=== PATIENT | female | born 1965 | race African-American/Black ===

== ENCOUNTER 2022-08-07 09:26 | Inpatient (IN) | payer OTHER, SELFPAY ==
[2022-08-07 09:32] VITALS: BP 134/53; PULSE 84; RESP 18; TEMP 37.2; O2SAT 94; BMI 29.0
[2022-08-07 10:03] LABS: Appearance Urine Clear; Color Urine Yellow; Glucose Urine UA Negative (Negative); Leukocyte Esterase Urine Moderate (2+) (Negative); Nitrite Urine Negative (Negative); PH 5.5 (5.0-9.0); Specific Gravity - Urine 1.025 (1.005-1.025); UMIC TRIGGER UACC YES; Urine Blood Negative (Negative); Urine Ketones Negative (Negative); Urine Protein Negative (Neg-Trace)
[2022-08-07 10:04] LABS: UPreg QC Valid YES; Urine Pregnancy NEGATIVE (NEGATIVE)
[2022-08-07 10:08] LABS: Bacteria Urine None Seen (None Seen); Hyaline Casts Urine 0-2 /LPF (0-2); RBC Urine 0-2 /HPF (0-2); UACC Culture Trigger YES
[2022-08-07 10:19] LABS: COVID-19 Test Negative (Negative); IDNOW Serial# 16C4AD1C
[2022-08-07 10:20] LABS: Amphetamine Screen Urine Not Detected (Not Detect); Barbiturates, Urine Not Detected (Not Detect); Benzodiazepines Screen Urine Not Detected (Not Detect); Cannabinoid Screen Urine Not Detected (Not Detect); Cocaine Screen Urine POSITIVE (Not Detect); Fentanyl, urine POSITIVE (Not Detect); Opiate Screen Urine Not Detected (Not Detect); Phencyclidine Screen Urine Not Detected (Not Detect)
--- NOTE | 2022-08-07 10:28 | ED_ITS ---
HPI - Psych General Chief Complaint: Psychiatric Symptoms <LING Chiu Last Filed: 08/07/22 14:42> Stated Complaint: si/ hi auditory hallucinations sect 12 from [facility] <LING Chiu Last Filed: 08/07/22 14:42> Time Seen by Provider: 08/07/22 09:35 <LING Chiu Last Filed: 08/07/22 14:42> Source: patient and EMS <LING Chiu Last Filed: 08/07/22 14:42> Mode of arrival: EMS <LING Chiu Last Filed: 08/07/22 14:42> Limitations: no limitations <LING Chiu Last Filed: 08/07/22 14:42> History of Present Illness HPI Narrative: 56 yo female with history of schizophrenia presents to the ER from [facility] on [address] on a section 12 with concern for acute psychosis and decompensation. She is delusional and is fearful of people lying to her. She wants to harm people who are lying to her. She states she went to the [facility] clinic today because her cat scratched her. She is a poor historian. She is suspicious and will not answer some questions. She reports taking all of her medications as directed. She admits to visual and auditory hallucinations. <LING Chiu Last Filed: 08/07/22 14:42> MD complaint: suicidal ideation, homicidal ideation, anxiety and hallucinations <LING Chiu Last Filed: 08/07/22 14:42> Onset (ago): unknown <LING Chiu Last Filed: 08/07/22 14:42> Duration: constant <LING Chiu Last Filed: 08/07/22 14:42> Associated psychiatric symptoms: depression, suicidal ideation, homicidal ideation, racing thoughts, auditory hallucinations, visual hallucinations and delusions <LING Chiu Last Filed: 08/07/22 14:42> Treatments prior to arrival: placed on mental health hold <LING Chiu Last Filed: 08/07/22 14:42> If self harm: admits thoughts of self harm <LING Chiu Last Filed: 08/07/22 14:42> Related Data Home Medications: Home Medications Medication Instructions Recorded Confirmed albuterol sulfate 90 mcg/actuation 2 puff inhalation Q4H PRN wheezing 08/07/22 08/07/22 aerosol inhaler (Ventolin HFA) budesonide-formoterol HFA 160 2 puff inhalation BID 08/07/22 08/07/22 mcg-4.5 mcg/actuation aerosol inhaler (Symbicort) cholecalciferol (vitamin D3) 50 1 cap PO DAILY 08/07/22 08/07/22 mcg (2,000 unit) capsule diphenhydramine HCl 50 mg capsule 1 cap PO Q12H PRN Agitation 08/07/22 08/07/22 (Banophen) multivitamin with folic acid 400 1 tab PO DAILY 08/07/22 08/07/22 mcg tablet (Daily-Rupinder (with folic acid)) oxcarbazepine 300 mg tablet 1 tab PO BID 08/07/22 08/07/22 prazosin 1 mg capsule 1 cap PO BEDTIME 08/07/22 08/07/22 quetiapine 100 mg tablet 100 mg PO DAILY@1400 08/07/22 08/07/22 quetiapine 100 mg tablet 200 mg PO DAILY@0900 08/07/22 08/07/22 quetiapine 300 mg tablet (Seroquel) 2 tab PO BEDTIME 08/07/22 08/07/22 risperidone 2 mg tablet 1 tab PO BID 08/07/22 08/07/22 <LING Chiu - Last Filed: 08/07/22 14:42> Allergies/Adverse Reactions: Allergies Allergy/AdvReac Type Severity Reaction Status Date / Time Tetracyclines Allergy Unknown Verified 08/07/22 09:43 <LING Chiu - Last Filed: 08/07/22 14:42> [facility] Social History Social History: Social History Alcohol intake: unknown Smoked in Last 30 Days: Yes Use of substances other than those prescribed or required for medical reasons: Unknown Advance Directives: No Patient : No <LING Chiu - Last Filed: 08/07/22 14:42> Physical Exam Vital Signs: Vital Signs: Last Vital Signs Temp 98.9 F 08/07/22 09:32 Pulse 84 08/07/22 09:32 Resp 18 08/07/22 09:32 BP 134/53 L 08/07/22 09:32 Pulse Ox 94 08/07/22 09:32 O2 Del Method 08/07/22 09:32 BMI result Body Mass Index 29.0 <LING Chiu - Last Filed: 08/07/22 14:42> Vital Signs: Last Vital Signs Temp 98.9 F 08/07/22 09:32 Pulse 84 08/07/22 09:32 Resp 18 08/07/22 09:32 BP 134/53 L 08/07/22 09:32 Pulse Ox 94 08/07/22 09:32 O2 Del Method 08/07/22 09:32 BMI result Body Mass Index 29.0 <Kareem Cabrera MD - Last Filed: 08/07/22 16:19> Appearance: Alert. Oriented X3. No acute distress. Eyes: Pupils equal, round and reactive to light. ENT: Pharynx normal. Neck: Normal inspection. Neck supple. CVS: Normal heart rate and rhythm. Pulses normal. Respiratory: No respiratory distress. Breath sounds normal. Abdomen: Soft and nontender. +BS x4 Skin: Skin warm and dry. Normal skin color. Normal skin turgor. No rashes. Extremities: No lower extremity edema. Neuro/psych: Oriented X 3. No motor deficit. No sensory deficit. CN II-XII grossly intact. Does not make eye contact, paranoid, delusional, flight of ideas. poor insight and judgment. <LING Chiu - Last Filed: 08/07/22 14:42> Course Course Course Narrative: 56-year-old female with history of schizophrenia presents to the ER for evaluation and inpatient psychiatric bed search on a [address] from the community. [facility] and sent in for acute decompensation. Poor historian with paranoia. Will get basic labs and medially clear. <LING Chiu - Last Filed: 08/07/22 14:42> Reevaluation(s) Reevaluation #1: Urinalysis with moderate leukocyte esterase, wbc's 11-20 with some squamous epithelial cells present. This could be due to contamination. This could be due to UTI. She is poor historian. Awaiting lab work to see if she has a leukocytosis. Given her mild cat scratch and question of UTI, will start her on Augmentin for treatment and propphylaxis while awaiting urine culture. Patient to be admitted to the psychiatric floor for further management. <LING Vuong - Last Filed: 08/07/22 14:42> Medications Administered Generic Name Dose Route Start Last Admin Trade Name Freq PRN Reason Stop Dose Admin Amoxicillin/Clavulanate Potassium 875 mg 08/07/22 13:00 08/07/22 13:38 Amoxicillin/Potassium Clav 875 Mg Tablet PO Not Given BID ANNY Multivitamins/Vitamin C 1 tab 08/07/22 11:30 08/07/22 12:33 Multivitamin Tablet PO Not Given DAILY ANNY Oxcarbazepine 300 mg 08/07/22 11:30 08/07/22 12:33 Oxcarbazepine 300 Mg Tablet PO Not Given BID ANNY Quetiapine Fumarate 100 mg 08/07/22 11:30 08/07/22 12:33 Quetiapine Fumarate 100 Mg Tablet PO Not Given DAILY ANNY Risperidone 2 mg 08/07/22 11:30 08/07/22 12:33 Risperidone 2 Mg Tablet PO Not Given BID ANNY Vitamin D 50 mcg 08/07/22 11:30 08/07/22 12:33 Cholecalciferol (Vitamin D3) 25 Mcg Tablet PO Not Given DAILY ANNY Discontinued Medications Generic Name Dose Route Start Last Admin Trade Name Freq PRN Reason Stop Dose Admin Amoxicillin/Clavulanate Potassium 875 mg 08/07/22 12:50 08/07/22 13:38 Amoxicillin/Potassium Clav 875 Mg Tablet PO 08/11/22 21:00 Not Given BID ANNY <LING Chiu - Last Filed: 08/07/22 14:42> Medications Administered Generic Name Dose Route Start Last Admin Trade Name Freq PRN Reason Stop Dose Admin Amoxicillin/Clavulanate Potassium 875 mg 08/07/22 13:00 08/07/22 13:38 Amoxicillin/Potassium Clav 875 Mg Tablet PO Not Given BID ANNY Multivitamins/Vitamin C 1 tab 08/07/22 11:30 08/07/22 12:33 Multivitamin Tablet PO Not Given DAILY ANNY Oxcarbazepine 300 mg 08/07/22 11:30 08/07/22 12:33 Oxcarbazepine 300 Mg Tablet PO Not Given BID ANNY Quetiapine Fumarate 100 mg 08/07/22 11:30 08/07/22 12:33 Quetiapine Fumarate 100 Mg Tablet PO Not Given DAILY ANNY Risperidone 2 mg 08/07/22 11:30 08/07/22 12:33 Risperidone 2 Mg Tablet PO Not Given BID ANNY Vitamin D 50 mcg 08/07/22 11:30 08/07/22 12:33 Cholecalciferol (Vitamin D3) 25 Mcg Tablet PO Not Given DAILY ANNY Discontinued Medications Generic Name Dose Route Start Last Admin Trade Name Shanice PRN Reason Stop Dose Admin Amoxicillin/Clavulanate Potassium 875 mg 08/07/22 12:50 08/07/22 13:38 Amoxicillin/Potassium Clav 875 Mg Tablet PO 08/11/22 21:00 Not Given BID ANNY <Kareem Cabrera MD - Last Filed: 08/07/22 16:19> Medical Decision Making Differential Diagnosis Differential Diagnoses: The differential diagnosis associated with the presentation includes <LING Chiu - Last Filed: 08/07/22 14:42> psychosis, decompensated schizophrenia, medication noncompliance, anxiety, delusions, polypharmacy, polysubstance abuse, personality disorder bipolar disorder <LING Chiu - Last Filed: 08/07/22 14:42> Lab Data MDM Lab Attestation statement: I reviewed the patient's lab results. <LING Chiu - Last Filed: 08/07/22 14:42> UA shows possible infection <LING Chiu - Last Filed: 08/07/22 14:42> Result Diagrams: 08/07/22 13:57 08/07/22 13:57 <LING Chiu - Last Filed: 08/07/22 14:42> Labs: Lab Results 08/07/22 08/07/22 08/07/22 Range/Units 09:51 09:51 09:51 WBC RBC Hgb Hct MCV MCH MCHC RDW Plt Count MPV Immature Gran % (Auto) Neut % (Auto) Lymph % (Auto) [place] % (Auto) Eos % (Auto) Baso % (Auto) Lymph # (Auto) [place] # (Auto) Eos # (Auto) Baso # (Auto) Abs Immat Gran (auto) Absolute Neuts (auto) Absolute Nucleated RBC Nucleated RBC % (auto) Sodium Potassium Chloride Carbon Dioxide Anion Gap BUN Creatinine Estim Creat Clear Calc Estimated GFR Random Glucose Calcium Magnesium Total Bilirubin Direct Bilirubin AST ALT Alkaline Phosphatase Total Protein Albumin Urine Color Yellow Urine Appearance Clear Urine pH 5.5 (5.0-9.0) Ur Specific [place] 1.025 (1.005-1.025) Urine Protein Negative (Neg-Trace) mg/dL Urine Glucose (UA) Negative (Negative) mg/dL Urine Ketones Negative (Negative) mg/dL Urine Blood Negative (Negative) Urine Nitrite Negative (Negative) Ur Leukocyte Esterase Moderate (2+) H (Negative) Urine RBC 0-2 (0-2) /HPF Urine WBC 11-20 H (0-5) /HPF Ur Squamous Epith Cells 3-5 (0-2) /HPF Urine Bacteria None Seen (None Seen) Hyaline Casts 0-2 (0-2) /LPF Urine Test NEGATIVE (NEGATIVE) Urine Opiates Screen (Not Detect) Urine Fentanyl Screen (Not Detect) Ur Barbiturates Screen (Not Detect) Ur Phencyclidine Scrn (Not Detect) Ur Amphetamines Screen (Not Detect) U Benzodiazepines Scrn (Not Detect) Urine Cocaine Screen (Not Detect) U Marijuana (THC) Screen (Not Detect) Ethyl Alcohol COVID-19 (DALILA) Negative (Negative) COVID-19 Clin Com See Note 08/07/22 08/07/22 08/07/22 Range/Units 09:51 13:57 13:57 WBC Cancelled RBC Cancelled Hgb Cancelled Hct Cancelled MCV Cancelled MCH Cancelled MCHC Cancelled RDW Cancelled Plt Count Cancelled MPV Cancelled Immature Gran % (Auto) Cancelled Neut % (Auto) Cancelled Lymph % (Auto) Cancelled [place] % (Auto) Cancelled Eos % (Auto) Cancelled Baso % (Auto) Cancelled Lymph # (Auto) Cancelled [place] # (Auto) Cancelled Eos # (Auto) Cancelled Baso # (Auto) Cancelled Abs Immat Gran (auto) Cancelled Absolute Neuts (auto) Cancelled Absolute Nucleated RBC Cancelled Nucleated RBC % (auto) Cancelled Sodium Cancelled Potassium Cancelled Chloride Cancelled Carbon Dioxide Cancelled Anion Gap Cancelled BUN Cancelled Creatinine Cancelled Estim Creat Clear Calc Cancelled Estimated GFR Cancelled Random Glucose Cancelled Calcium Cancelled Magnesium Cancelled Total Bilirubin Cancelled Direct Bilirubin Cancelled AST Cancelled ALT Cancelled Alkaline Phosphatase Cancelled Total Protein Cancelled Albumin Cancelled Urine Color Urine Appearance Urine pH (5.0-9.0) Ur Specific [place] (1.005-1.025) Urine Protein (Neg-Trace) mg/dL Urine Glucose (UA) (Negative) mg/dL Urine Ketones (Negative) mg/dL Urine Blood (Negative) Urine Nitrite (Negative) Ur Leukocyte Esterase (Negative) Urine RBC (0-2) /HPF Urine WBC (0-5) /HPF Ur Squamous Epith Cells (0-2) /HPF Urine Bacteria (None Seen) Hyaline Casts (0-2) /LPF Urine Test (NEGATIVE) Urine Opiates Screen Not Detected (Not Detect) Urine Fentanyl Screen POSITIVE H (Not Detect) Ur Barbiturates Screen Not Detected (Not Detect) Ur Phencyclidine Scrn Not Detected (Not Detect) Ur Amphetamines Screen Not Detected (Not Detect) U Benzodiazepines Scrn Not Detected (Not Detect) Urine Cocaine Screen POSITIVE H (Not Detect) U Marijuana (THC) Screen Not Detected (Not Detect) Ethyl Alcohol Cancelled COVID-19 (DALILA) (Negative) COVID-19 Clin Com 08/07/22 Range/Units 13:57 WBC RBC Hgb Hct MCV MCH MCHC RDW Plt Count MPV Immature Gran % (Auto) Neut % (Auto) Lymph % (Auto) [place] % (Auto) Eos % (Auto) Baso % (Auto) Lymph # (Auto) [place] # (Auto) Eos # (Auto) Baso # (Auto) Abs Immat Gran (auto) Absolute Neuts (auto) Absolute Nucleated RBC Nucleated RBC % (auto) Sodium Potassium Chloride Carbon Dioxide Anion Gap BUN Creatinine Estim Creat Clear Calc Estimated GFR Random Glucose Calcium Magnesium Total Bilirubin Direct Bilirubin AST ALT Alkaline Phosphatase Total Protein Albumin Urine Color Urine Appearance Urine pH (5.0-9.0) Ur Specific [place] (1.005-1.025) Urine Protein (Neg-Trace) mg/dL Urine Glucose (UA) (Negative) mg/dL Urine Ketones (Negative) mg/dL Urine Blood (Negative) Urine Nitrite (Negative) Ur Leukocyte Esterase (Negative) Urine RBC (0-2) /HPF Urine WBC (0-5) /HPF Ur Squamous Epith Cells (0-2) /HPF Urine Bacteria (None Seen) Hyaline Casts (0-2) /LPF Urine Test (NEGATIVE) Urine Opiates Screen (Not Detect) Urine Fentanyl Screen (Not Detect) Ur Barbiturates Screen (Not Detect) Ur Phencyclidine Scrn (Not Detect) Ur Amphetamines Screen (Not Detect) U Benzodiazepines Scrn (Not Detect) Urine Cocaine Screen (Not Detect) U Marijuana (THC) Screen (Not Detect) Ethyl Alcohol < 10 COVID-19 (DALILA) (Negative) COVID-19 Clin Com <LING Chiu - Last Filed: 08/07/22 14:42> Lab Results 08/07/22 08/07/22 08/07/22 Range/Units 09:51 09:51 09:51 WBC RBC Hgb Hct MCV MCH MCHC RDW Plt Count MPV Immature Gran % (Auto) Neut % (Auto) Lymph % (Auto) [place] % (Auto) Eos % (Auto) Baso % (Auto) Lymph # (Auto) [place] # (Auto) Eos # (Auto) Baso # (Auto) Abs Immat Gran (auto) Absolute Neuts (auto) Absolute Nucleated RBC Nucleated RBC % (auto) Sodium Potassium Chloride Carbon Dioxide Anion Gap BUN Creatinine Estim Creat Clear Calc Estimated GFR Random Glucose Calcium Magnesium Total Bilirubin Direct Bilirubin AST ALT Alkaline Phosphatase Total Protein Albumin Urine Color Yellow Urine Appearance Clear Urine pH 5.5 (5.0-9.0) Ur Specific [place] 1.025 (1.005-1.025) Urine Protein Negative (Neg-Trace) mg/dL Urine Glucose (UA) Negative (Negative) mg/dL Urine Ketones Negative (Negative) mg/dL Urine Blood Negative (Negative) Urine Nitrite Negative (Negative) Ur Leukocyte Esterase Moderate (2+) H (Negative) Urine RBC 0-2 (0-2) /HPF Urine WBC 11-20 H (0-5) /HPF Ur Squamous Epith Cells 3-5 (0-2) /HPF Urine Bacteria None Seen (None Seen) Hyaline Casts 0-2 (0-2) /LPF Urine Test NEGATIVE (NEGATIVE) Urine Opiates Screen (Not Detect) Urine Fentanyl Screen (Not Detect) Ur Barbiturates Screen (Not Detect) Ur Phencyclidine Scrn (Not Detect) Ur Amphetamines Screen (Not Detect) U Benzodiazepines Scrn (Not Detect) Urine Cocaine Screen (Not Detect) U Marijuana (THC) Screen (Not Detect) Ethyl Alcohol COVID-19 (DALILA) Negative (Negative) COVID-19 Clin Com See Note 08/07/22 08/07/22 08/07/22 Range/Units 09:51 13:57 13:57 WBC Cancelled RBC Cancelled Hgb Cancelled Hct Cancelled MCV Cancelled MCH Cancelled MCHC Cancelled RDW Cancelled Plt Count Cancelled MPV Cancelled Immature Gran % (Auto) Cancelled Neut % (Auto) Cancelled Lymph % (Auto) Cancelled [place] % (Auto) Cancelled Eos % (Auto) Cancelled Baso % (Auto) Cancelled Lymph # (Auto) Cancelled [place] # (Auto) Cancelled Eos # (Auto) Cancelled Baso # (Auto) Cancelled Abs Immat Gran (auto) Cancelled Absolute Neuts (auto) Cancelled Absolute Nucleated RBC Cancelled Nucleated RBC % (auto) Cancelled Sodium Cancelled Potassium Cancelled Chloride Cancelled Carbon Dioxide Cancelled Anion Gap Cancelled BUN Cancelled Creatinine Cancelled Estim Creat Clear Calc Cancelled Estimated GFR Cancelled Random Glucose Cancelled Calcium Cancelled Magnesium Cancelled Total Bilirubin Cancelled Direct Bilirubin Cancelled AST Cancelled ALT Cancelled Alkaline Phosphatase Cancelled Total Protein Cancelled Albumin Cancelled Urine Color Urine Appearance Urine pH (5.0-9.0) Ur Specific [place] (1.005-1.025) Urine Protein (Neg-Trace) mg/dL Urine Glucose (UA) (Negative) mg/dL Urine Ketones (Negative) mg/dL Urine Blood (Negative) Urine Nitrite (Negative) Ur Leukocyte Esterase (Negative) Urine RBC (0-2) /HPF Urine WBC (0-5) /HPF Ur Squamous Epith Cells (0-2) /HPF Urine Bacteria (None Seen) Hyaline Casts (0-2) /LPF Urine Test (NEGATIVE) Urine Opiates Screen Not Detected (Not Detect) Urine Fentanyl Screen POSITIVE H (Not Detect) Ur Barbiturates Screen Not Detected (Not Detect) Ur Phencyclidine Scrn Not Detected (Not Detect) Ur Amphetamines Screen Not Detected (Not Detect) U Benzodiazepines Scrn Not Detected (Not Detect) Urine Cocaine Screen POSITIVE H (Not Detect) U Marijuana (THC) Screen Not Detected (Not Detect) Ethyl Alcohol Cancelled COVID-19 (DALILA) (Negative) COVID-19 Clin Com 08/07/22 Range/Units 13:57 WBC RBC Hgb Hct MCV MCH MCHC RDW Plt Count MPV Immature Gran % (Auto) Neut % (Auto) Lymph % (Auto) [place] % (Auto) Eos % (Auto) Baso % (Auto) Lymph # (Auto) [place] # (Auto) Eos # (Auto) Baso # (Auto) Abs Immat Gran (auto) Absolute Neuts (auto) Absolute Nucleated RBC Nucleated RBC % (auto) Sodium Potassium Chloride Carbon Dioxide Anion Gap BUN Creatinine Estim Creat Clear Calc Estimated GFR Random Glucose Calcium Magnesium Total Bilirubin Direct Bilirubin AST ALT Alkaline Phosphatase Total Protein Albumin Urine Color Urine Appearance Urine pH (5.0-9.0) Ur Specific [place] (1.005-1.025) Urine Protein (Neg-Trace) mg/dL Urine Glucose (UA) (Negative) mg/dL Urine Ketones (Negative) mg/dL Urine Blood (Negative) Urine Nitrite (Negative) Ur Leukocyte Esterase (Negative) Urine RBC (0-2) /HPF Urine WBC (0-5) /HPF Ur Squamous Epith Cells (0-2) /HPF Urine Bacteria (None Seen) Hyaline Casts (0-2) /LPF Urine Test (NEGATIVE) Urine Opiates Screen (Not Detect) Urine Fentanyl Screen (Not Detect) Ur Barbiturates Screen (Not Detect) Ur Phencyclidine Scrn (Not Detect) Ur Amphetamines Screen (Not Detect) U Benzodiazepines Scrn (Not Detect) Urine Cocaine Screen (Not Detect) U Marijuana (THC) Screen (Not Detect) Ethyl Alcohol < 10 COVID-19 (DALILA) (Negative) COVID-19 Clin Com <Kareem Cabrera MD - Last Filed: 08/07/22 16:19> Independent Historian Clinical information obtained from an independent historian. History obtained from or confirmed by: EMS <LING Chiu - Last Filed: 08/07/22 14:42> Prescription Management I considered prescription management with: Antibiotic <LING Chiu - Last Filed: 08/07/22 14:42> Chronic Conditions Patient?s care impacted by: Other ( Mental illness) <LING Chiu - Last Filed: 08/07/22 14:42> Social Determinants Patient?s care significantly limited by Social Determinants of Health including: Inadequate housing, Alcoholism and drug addiction in family and Unemployment <LING Chiu - Last Filed: 08/07/22 14:42> Attestation Attending Attestation: I personally reviewed PA/resident/nurse practitioner note. I reviewed a all results and treatment plan. I agree with the assessment and plan. I agree with disposition <Kareem Cabrera MD - Last Filed: 08/07/22 16:19> Critical Care Time Critical Care Time Critical Care Time: No <LING Chiu - Last Filed: 08/07/22 14:42> Discharge Plan Discharge Clinical Impression: Schizophrenia, Cat scratch, Polysubstance abuse <LING Chiu - Last Filed: 08/07/22 14:42> Patient Disposition: Admitted As Inpatient <LING Chiu - Last Filed: 08/07/22 14:42> Interventions: Admission Worksheet (ED) Last Done: 08/07/22 15:40 <LING Chiu - Last Filed: 08/07/22 14:42> Discharge Date/Time: 08/07/22 16:05 <LING Chiu - Last Filed: 08/07/22 14:42>
--- NOTE | 2022-08-07 11:30 | PC.NURSE ---
Addendum entered by Franhceska Dougherty 08/07/22 11:58: Home medications now verified by pharmacy Original Note: Preliminary med rec completed and verified. Pharmacy aware.
--- NOTE | 2022-08-07 11:40 | PHA.MEDREC ---
Pharmacy Consult ? Medication Reconciliation Pharmacy has completed the medication reconciliation. Reviewed med rec done by nursing (Francheska). Called pharmacy to confirm meds.
--- NOTE | 2022-08-07 12:30 | ECG_ITS ---
Test Reason : MED CLEARANCE Blood Pressure : / mmHG Vent. Rate : 071 BPM Atrial Rate : 071 BPM P-R Int : 144 ms QRS Dur : 086 ms QT Int : 392 ms P-R-T Axes : 079 089 084 degrees QTc Int : 425 ms Normal sinus rhythm Septal infarct , age undetermined Abnormal ECG No previous ECGs available Referred By: Monse Patel Electronically Signed By:TALIB MOSER MD
[2022-08-07 14:56] LABS: Ethanol < 10 mg/dL
--- OUTSIDE RECORDS SUMMARY | 2022-08-07 14:56 | XMS_ITS | Continuity of Care Document ---
:1965 Author Organization [facility] Address [address] [place] [phone]- Care Team Providers Name Role Phone Ella JAMES, Ellen Luong Primary Care Physician Unavailabl e Encounter [facility] Date(s): 02/20/22 - 02/20/[address] [id number] Discharge Disposition: A-D/C Home Attending Physician: Jad Durbin MD Admitting Physician: Jad Durbin MD Referring Physician: Jad Durbin MD Allergies, Adverse Reactions, Alerts Substance Reaction Severity Status tetracycline Active Medications acetaminophen 500 mg oral tablet 1 tablet = 500 mg, By Mouth, Every 4 hours, PRN as needed for fever, # 100 tablet, 0 Refills, Maintenance, 07/31/21 10:15:00 EST, Tablet, Partial fill upon patient request if the prescription is for a schedule II opioid drug. Start Date: 07/31/21 Status: Orderedbaclofen 20 mg oral tablet 20 mg, 1, tablet, By Mouth, 3 times a day, # 270 tablet, Refills 0, Maintenance, 07/31/21 10:17:00 EST, Partial fill upon patient request if the prescription is for a schedule II opioid drug. Start Date: 07/31/21 Status: OrderedBanophen 50 mg oral capsule 1 capsule = 50 mg, By Mouth, 3 times a day, PRN as needed for allergy symptoms, # 30 capsule, 0 Refills, Maintenance, 07/31/21 10:16:00 EST, Capsule, Partial fill upon patient request if the prescription is for a schedule II opioid drug. Start Date: 07/31/21 Status: Orderedbenztropine 0.5 mg oral tablet 0.5 mg, 1, tablet, By Mouth, Daily at bedtime, # 30 tablet, Refills 0, Maintenance, 07/31/21 10:18:00 EST, Partial fill upon patient request if the prescription is for a schedule II opioid drug. Start Date: 07/31/21 Status: Orderedcelecoxib 200 mg oral capsule 1 capsule = 200 mg, By Mouth, 2 times a day, 0 Refills, Maintenance, 07/31/21 10:17:00 EST, Capsule,Partial fill upon patient request if the prescription is for a schedule II opioid drug. Start Date: 07/31/21 Status: Ordereddiclofenac 1% topical gel 1 application, Topically, 4 times a day, # 100 Gm, 0 Refills, Maintenance, 07/31/21 10:17:00 EST, Gel, Partial fill upon patient request if the prescription is for a schedule II opioid drug. Start Date: 07/31/21 Status: Orderedfolic acid 1 mg oral tablet 1 mg, 1, tablet, By Mouth, Daily, # 30 tablet, Refills 0, Tot. Refills 0, Maintenance, 04/06/19 8:36:05 EDT, Route to Pharmacy Electronically, [id number], [facility]/pharmacy #[id number] Start Date: 04/06/19 Stop Date: 05/06/19 Status: OrderedGolytely - oral powder for reconstitution See Instructions, Drink 240mL every 15 minutes until gone, # 4,000 mL, 0 Refills, Maintenance, 07/31/21 8:11:00 EST, [facility]/pharmacy #[id number], Partial fill upon patient request if the prescription is for a schedule II opioid drug., Drink 240mL every 15 mamie... Start Date: 07/31/21 Status: Orderedlidocaine 2% (OP) IV Infusion, Once, 0 Refills, Maintenance, 2 Start Date: 07/31/21 Status: Orderednicotine 21 mg/24 hr transdermal film, extended release 1 patch, Topically, Daily, # 30 patch, 0 Refills, Maintenance, 04/06/19 8:37:27 EDT, Patch, 1 patch Topically Daily Start Date: 04/06/19 Status: OrderedOXcarbazepine 300 mg oral tablet 600 mg, 2, tablet, By Mouth, 2 times a day, # 120 tablet, Refills 0, Maintenance, 07/31/21 10:16:00 EST, Partial fill upon patient request if the prescription is for a schedule II opioid drug. Start Date: 07/31/21 Status: Orderedprazosin 1 mg oral capsule 1 mg, 1, capsule, By Mouth, 2 times a day, Refills 0, Maintenance, 07/31/21 10:16:00 EST, Partial fill upon patient request if the prescription is for a schedule II opioid drug. Start Date: 07/31/21 Status: OrderedProAir HFA 90 mcg/inh inhalation aerosol with adapter 2, puffs, Inhalation, Every 6 hours, PRN, # 8.5 Gm, Refills 0, Maintenance, 12/01/16 13:47:09, Aerosol Start Date: 12/01/16 Status: OrderedProAir HFA 90 mcg/inh inhalation aerosol with adapter 1, puffs, Inhalation, Every 4 hours, PRN, # 8.5 Gm, Refills 0, Maintenance, 07/31/21 10:16:00 EST, Aerosol Start Date: 07/31/21 Status: OrderedQUEtiapine 200 mg oral tablet 500 mg, 2.5, tablet, By Mouth, Daily at bedtime, # 75 tablet, Refills 0, Tot. Refills 0, Maintenance, 04/06/19 8:35:53 EDT, Route to Pharmacy Electronically, [id number], [facility]/pharmacy #[id number] Start Date: 04/06/19 Stop Date: 05/06/19 Status: OrderedQUEtiapine 200 mg oral tablet 200 mg, 1, tablet, By Mouth, Daily in AM, # 30 tablet, Refills 0, Tot. Refills 0, Maintenance, 04/06/19 10:32:35 EDT, Route to Pharmacy Electronically, [id number], [facility]/pharmacy #[id number] Start Date: 04/06/19 Status: OrderedQUEtiapine 300 mg oral tablet 1 tablet = 300 mg, By Mouth, Daily at bedtime, # 30 tablet, 0 Refills, Maintenance, 07/31/21 10:15:00 EST, Tablet, Partial fill upon patient request if the prescription is for a schedule II opioid drug. Start Date: 07/31/21 Status: OrderedrisperiDONE 2 mg oral tablet 2 mg, 1, tablet, By Mouth, 2 times a day, # 60 tablet, Refills 0, Maintenance, 07/31/21 10:16:00 EST, Partial fill upon patient request if the prescription is for a schedule II opioid drug. Start Date: 07/31/21 Status: OrderedrisperiDONE 2 mg oral tablet 2 mg, 1, tablet, By Mouth, 2 times a day, # 60 tablet, Refills 0, Maintenance, 07/31/21 10:18:00 EST, Partial fill upon patient request if the prescription is for a schedule II opioid drug. Start Date: 07/31/21 Status: OrderedVitamin D3 2000 intl units oral tablet 0 Refills, Maintenance, 07/31/21 10:17:00 EST, Partial fill upon patient request if the prescriptionis for a schedule II opioid drug. Start Date: 07/31/21 Status: Ordered Procedures Procedure Date Related Diagnosis Body Site Status Colonoscopy with polypectomy 02/20/22 Completed Vital Signs Most recent to oldest 1 2 3 [Reference Range]: Height 162.6 cm (02/20/22 10:36 AM) Oxygen Saturation [94-100 98 % 97 % 94 % %] (02/20/22 11:44 AM) (02/20/22 11:30 AM) (02/20/22 10:3 6 AM) Pulse Rate [55-90 bpm] 94 bpm *H* (02/20/22 10:36 AM) Blood Pressure 125/53 mm Hg 128/75 mm Hg 134/73 mm Hg [90-138/55-84 mm Hg] (02/20/22 11:44 AM) (02/20/22 11:30 AM) (02/20/22 10:36 AM) Respiratory Rate [16-30 18 br/min 20 br/min 22 br/mi n br/min] (02/20/22 11:44 AM) (02/20/22 11:30 AM) (02/20/22 10:3 6 AM) Temperature [96.8-100.4 97.6 DegF DegF] (02/20/22 10:36 AM) Mode of Delivery (Oxygen) Room air Room air Room a ir (02/20/22 11:44 AM) (02/20/22 11:30 AM) (02/20/22 10:3 6 AM) Blood pressure sites Arm, right Arm, right Arm, right (02/20/22 11:44 AM) (02/20/22 11:30 AM) (02/20/22 10:3 6 AM) Temperature Route Temporal (02/20/22 10:36 AM) Dry Weight 72.6 kg (02/20/22 10:36 AM) Dry Weight Obtained Via Patient/family stated (02/20/22 10:36 AM) Social History Social History Type Response Smoking Status 10 or more cigarettes (1/2 p ack or more)/day in last 30 days entered on: 03/23/19 Sex
--- OUTSIDE RECORDS SUMMARY | 2022-08-07 14:56 | XMS_ITS | Continuity of Care Document ---
:1965 Author Organization [facility] Address [address] [place] [phone]- Care Team Providers Name Role Phone Tania JAMES, Pranay Primary Care Physician [place] [facility] [place]/15/[place] - 07/15/[address] [address]- Discharge Disposition: A-D/C Walkout Attending Physician: Not on Staff, Attending MD Admitting Physician: Not on Staff, Admitting MD Referring Physician: Not on Staff, Referring MD Allergies, Adverse Reactions, Alerts Substance Reaction Severity Status tetracycline Active Medications folic acid 1 mg oral tablet 1 mg, 1, tablet, By Mouth, Daily, # 30 tablet, Refills 0, Tot. Refills 0, Maintenance, 04/06/19 8:36:05 EDT, Route to Pharmacy Electronically, [id number], [facility]/pharmacy #[id number] Start Date: 04/06/19 Stop Date: 05/06/19 Status: Orderednicotine 21 mg/24 hr transdermal film, extended release 1 patch, Topically, Daily, # 30 patch, 0 Refills, Maintenance, 04/06/19 8:37:27 EDT, Patch, 1 patch Topically Daily Start Date: 04/06/19 Status: OrderedProAir HFA 90 mcg/inh inhalation aerosol with adapter 2, puffs, Inhalation, Every 6 hours, PRN, # 8.5 Gm, Refills 0, Maintenance, 12/01/16 13:47:09, Aerosol Start Date: 12/01/16 Status: OrderedQUEtiapine 200 mg oral tablet 500 mg, 2.5, tablet, By Mouth, Daily at bedtime, # 75 tablet, Refills 0, Tot. Refills 0, Maintenance, 04/06/19 8:35:53 EDT, Route to Pharmacy Electronically, [id number], [facility]/pharmacy #[id number] Start Date: 04/06/19 Stop Date: 05/06/19 Status: OrderedQUEtiapine 200 mg oral tablet 200 mg, 1, tablet, By Mouth, Daily in AM, # 30 tablet, Refills 0, Tot. Refills 0, Maintenance, 04/06/19 10:32:35 EDT, Route to Pharmacy Electronically, [id number], [facility]/pharmacy #[id number] Start Date: 04/06/19 Status: Ordered Results Radiology Reports Exam Date Time Procedure Performing Provider Status 07/15/20 11:14 AM Chest Portable Latoya Chaves (Nolan ified) Notes:(Chest Portable) Reason For Exam: Shortness of BreathRESULT: Chest Portable Chest Portable Reason: Shortness of Breath; Clinical Question(s): CHF COMPARISON: None. FINDINGS: LINES AND TUBES: None. LUNGS AND PLEURA: Minor bibasilar subsegmental atelectasis but otherwise clear lungs. No major consolidation or edema. No pleural effusion. No pneumothorax. HEART, MEDIASTINUM AND KELSY: Heart is normal in size. Normal upper mediastinal and hilar contour. BONES AND SOFT TISSUES: Normal. IMPRESSION: Minor bibasilar atelectasis but otherwise normal. No evidence of CHF. WSN: [id number] Ordering Physician: Nalini Cagle Dictated By: Robert Naidu MD Dictated Date/Time: 07/15/20 11:16 a Reviewed By: Robert Naidu MD Signed By: Robert Naidu MD Signed Date/Time: 07/15/20 11:16 am Transcribed By: RAFY Transcribed Date/Time: 07/15/20 11:14 am Vital Signs Most recent to oldest [Reference Range]: 1 2 Oxygen Saturation [94-100 %] 95 % 99 % (07/15/20 9:05 AM) (07/15/20 8:53 AM) Pulse Rate [55-90 bpm] 77 bpm (07/15/20 9:05 AM) Blood Pressure [90-138/55-84 mm Hg] 136/50 mm Hg (07/15/20 9:05 AM) Respiratory Rate [16-30 br/min] 24 br/min (07/15/20 9:05 AM) Temperature [96.8-100.4 DegF] 97.4 DegF (07/15/20 9:05 AM) Liters per Minute 2 L/min (07/15/20 8:53 AM) Mode of Delivery (Oxygen) Room air Nasal cannula (07/15/20 9:05 AM) (07/15/20 8:53 AM) Temperature Route Oral (07/15/20 9:05 AM) Social History Social History Type Response Smoking Status 10 or more cigarettes (1/2 p ack or more)/day in last 30 days entered on: 03/23/19 Sex
--- OUTSIDE RECORDS SUMMARY | 2022-08-07 14:56 | XMS_ITS | Continuity of Care Document ---
:1965 Author Organization [facility] Address [address] [place] [phone]- Care Team Providers Name Role Phone VicentasridharPranay Primary Care Physician [place] [facility] [place] - 08/22/[address] [address]- [facility] Encounter Diagnosis Homicidal behavior (Final) - 08/22/19 Discharge Disposition: Transfer to [facility] Attending Physician: Abbey Garibay DO Admitting Physician: Abbey Garibay DO Referring Physician: Not on Staff, Referring MD Allergies, Adverse Reactions, Alerts Substance Reaction Severity Status tetracycline Active Medications folic acid 1 mg oral tablet 1 mg, 1, tablet, By Mouth, Daily, # 30 tablet, Refills 0, Tot. Refills 0, Maintenance, 04/06/19 8:36:05 EDT, Route to Pharmacy Electronically, [id number], [facility]/pharmacy #[id number] Start Date: 04/06/19 Stop Date: [...] 04/06/19 8:35:53 EDT, Route to Pharmacy Electronically, [id number], [facility]/pharmacy #[id number] Start Date: 04/06/19 Stop Date: 05/06/19 Status: OrderedQUEtiapine 200 mg oral tablet 200 mg, 1, tablet, By Mouth, Daily in AM, # 30 tablet, Refills 0, Tot. Refills 0, Maintenance, 04/06/19 10:32:35 EDT, Route to Pharmacy Electronically, [id number], [facility]/pharmacy #[id number] Start Date: 04/06/19 Status: Ordered Vital Signs Most recent to oldest [Reference 1 2 3 Range]: Oxygen Saturation [94-100 %] 98 % 98 % 97 % (08/22/19 9:29 PM) (08/22/19 5:17 PM) (08/22/19 8:22 A M) Pulse Rate [55-90 bpm] 68 bpm 68 bpm 87 bpm (08/22/19 9:29 PM) (08/22/19 5:17 PM) (08/22/19 8:22 A M) Blood Pressure [90-138/55-84 mm 112/70 mm Hg 109/61 mm Hg 139/83 mm Hg Hg] (08/22/19 9:29 PM) (08/22/19 5:17 PM) *H* (08/22/19 8:22 AM) Respiratory Rate [16-30 br/min] 16 br/min 20 br/min 20 br/min (08/22/19 9:29 PM) (08/22/19 5:17 PM) (08/22/19 8:22 A M) Temperature [96.8-100.4 DegF] 98.4 DegF 98.2 DegF 97 .8 DegF (08/22/19 9:29 PM) (08/22/19 8:22 AM) (08/22/19 5:28 A M) Mode of Delivery (Oxygen) Room air Room air Room a ir (08/22/19 9:29 PM) (08/22/19 5:17 PM) (08/22/19 8:22 A M) Blood pressure sites Arm, right Arm, left Arm, left (08/22/19 9:29 PM) (08/22/19 5:17 PM) (08/22/19 8:22 A M) Temperature Route Oral Oral Oral (08/22/19 9:29 PM) (08/22/19 8:22 AM) (08/22/19 5:28 A M) Social History Social History Type Response Smoking Status 10 or more cigarettes (1/2 p ack or more)/day in last 30 days entered on: 03/23/19 Sex
--- OUTSIDE RECORDS SUMMARY | 2022-08-07 14:56 | XMS_ITS | Continuity of Care Document ---
:1965 Author Organization [facility] Address [address] [place] [address]- Care Team Providers Name Role Phone Pranay Marin Primary Care Physician En[place] [facility] [place](s): 07/22/19 - 11/19/19 [facility] [address] [place] [address] [facility] Attending Physician: Jad Durbin MD Admitting Physician: Jad Durbin MD Referring Physician: Pranay Marin Allergies, Adverse Reactions, Alerts Substance Reaction Severity Status tetracycline Active Medications folic acid 1 mg oral tablet 1 mg, 1, tablet, By Mouth, Daily, # 30 tablet, Refills 0, Tot. Refills 0, Maintenance, 04/06/19 8:36:05 EDT, Route to Pharmacy Electronically, [id number], [facility]/pharmacy #[id number] Start Date: 04/06/19 Stop Date: [...] 04/06/19 8:35:53 EDT, Route to Pharmacy Electronically, [id number], [facility]/pharmacy #[id number] Start Date: 04/06/19 Stop Date: 05/06/19 Status: OrderedQUEtiapine 200 mg oral tablet 200 mg, 1, tablet, By Mouth, Daily in AM, # 30 tablet, Refills 0, Tot. Refills 0, Maintenance, 04/06/19 10:32:35 EDT, Route to Pharmacy Electronically, [id number], [facility]/pharmacy #[id number] Start Date: 04/06/19 Status: Ordered Social History Social History Type Response Smoking Status 10 or more cigarettes (1/2 p ack or more)/day in last 30 days entered on: 03/23/19 Sex
--- OUTSIDE RECORDS SUMMARY | 2022-08-07 14:56 | XMS_ITS | Continuity of Care Document ---
:1965 Author Organization [facility] Address [address] [place] [address]- Care Team Providers Name Role Phone Tania JAMES, Pranay Primary Care Physician Unavailable [place] [facility] [place] [id number] Date(s): 03/14/20 - 04/13/20 [facility] [address] [place] [address]- [facility] Attending Physician: Haim Guy Admitting Physician: Admtr, Haim Referring Physician: Admtr, Ar8 Allergies, Adverse Reactions, Alerts Substance Reaction Severity Status tetracycline Active Medications folic acid 1 mg oral tablet 1 mg, 1, tablet, By Mouth, Daily, # 30 tablet, Refills 0, Tot. Refills 0, Maintenance, 04/06/19 8:36:05 EDT, Route to Pharmacy Electronically, [id number], [facility]/pharmacy #[id number] Start Date: 04/06/19 Stop Date: 05/06/19 [...] 04/06/19 8:35:53 EDT, Route to Pharmacy Electronically, [id number], [facility]/pharmacy #[id number] Start Date: 04/06/19 Stop Date: 05/06/19 Status: OrderedQUEtiapine 200 mg oral tablet 200 mg, 1, tablet, By Mouth, Daily in AM, # 30 tablet, Refills 0, Tot. Refills 0, Maintenance, 04/06/19 10:32:35 EDT, Route to Pharmacy Electronically, [id number], [facility]/pharmacy #[id number] Start Date: 04/06/19 Status: Ordered Social History Social History Type Response Smoking Status 10 or more cigarettes (1/2 p ack or more)/day in last 30 days entered on: 03/23/19 Sex
--- OUTSIDE RECORDS SUMMARY | 2022-08-07 14:56 | XMS_ITS | Continuity of Care Document ---
:1965 Author Organization [facility] Address [address] [place] [address]- Care Team Providers Name Role Phone Ella JAMES, Ellen Luong Primary Care Physician Unavailabl e [place] [facility] [place](s[place] 02/25/22 - 03/27/22 [facility] [address] [place] [address]- [place] Allergies, Adverse Reactions, Alerts Substance Reaction Severity [...] 04/06/19 8:36:05 EDT, Route to Pharmacy Electronically, [id number], [facility]/pharmacy #[id number] Start Date: 04/06/19 Stop Date: 05/06/19 Status: OrderedGolytely - oral powder for reconstitution See Instructions, Drink 240mL every 15 minutes until gone, # 4,000 mL, 0 Refills, Maintenance, 07/31/21 8:11:00 EST, [facility]/pharmacy #[id number], Partial fill upon patient request [...] 04/06/19 8:35:53 EDT, Route to Pharmacy Electronically, [id number], [facility]/pharmacy #[id number] Start Date: 04/06/19 Stop Date: 05/06/19 Status: OrderedQUEtiapine 200 mg oral tablet 200 mg, 1, tablet, By Mouth, Daily in AM, # 30 tablet, Refills 0, Tot. Refills 0, Maintenance, 04/06/19 10:32:35 EDT, Route to Pharmacy Electronically, [id number], [facility]/pharmacy #[id number] Start Date: 04/06/19 Status: OrderedQUEtiapine [...] opioid drug. Start Date: 07/31/21 Status: Ordered Social History Social History Type Response Smoking Status 10 or more cigarettes (1/2 p ack or more)/day in last 30 days entered on: 03/23/19 Sex Care Team PersonnelName: Ella JAMES, Ellen Luong Address: [address] [place] [id number]
--- OUTSIDE RECORDS SUMMARY | 2022-08-07 14:56 | XMS_ITS | Continuity of Care Document ---
:1965 Author Organization [facility] Address [address] [place] [address]- Care Team Providers Name Role Phone Ella JAMES, Ellen Luong Primary Care Physician Unavailabl e [place] [facility] [place] 07/31/21 - 08/30/21 [facility] [address] [place] [address]- Attending Physician: Haim Guy Admitting Physician: Haim Guy Referring Physician: Haim Guy Allergies, Adverse Reactions, Alerts Substance Reaction Severity [...] 04/06/19 8:36:05 EDT, Route to Pharmacy Electronically, [id number], [facility]/pharmacy #[id number] Start Date: 04/06/19 Stop Date: 05/06/19 Status: OrderedGolytely - oral powder for reconstitution See Instructions, Drink 240mL every 15 minutes until gone, # 4,000 mL, 0 Refills, Maintenance, 07/31/21 8:11:00 EST, [facility]/pharmacy #[id number], Partial fill upon patient request if [...] 04/06/19 8:35:53 EDT, Route to Pharmacy Electronically, [id number], [facility]/pharmacy #[id number] Start Date: 04/06/19 Stop Date: 05/06/19 Status: OrderedQUEtiapine 200 mg oral tablet 200 mg, 1, tablet, By Mouth, Daily in AM, # 30 tablet, Refills 0, Tot. Refills 0, Maintenance, 04/06/19 10:32:35 EDT, Route to Pharmacy Electronically, [id number], [facility]/pharmacy #[id number] Start Date: 04/06/19 Status: OrderedQUEtiapine 300 [...]
--- NOTE | 2022-08-07 17:50 | PC.ADMIT ---
Pt is a 56 year old female who presents to from [facility] ED at approx 16:20 on a cv status. Pt is covid-, Pt tox screen is + for fentanyl and cocaine. Pt presents with acute psychosis, suspicious of others. Per chart review, pt arrived via private transportation from her roommate's secondary to trying to hurt her cat. Pt had SI, and HI with plan to hurt anyone who lies to her. Pt reports AH and VH. Pt feels abandonment by individuals she cared for and her mother . During admit pt reports that she uses cocaine daily. Pt reported AH for all kinds of people telling her to hurt herself. Pt reported VH , but refused to answer of what she saw. Provider called and notified of admission. Start treatment plan and monitor for safety.
[2022-08-07 20:09] VITALS: BP 131/61; PULSE 101
[2022-08-07] MEDS: risperiDONE 2 MG TABLET PO (20:09)
[2022-08-07] MEDS: Amoxicillin/Potassium Clav 875 MG TABLET PO (20:10)
[2022-08-07] MEDS: Prazosin HCL 1 MG CAPSULE PO (20:10)
[2022-08-07] MEDS: QUEtiapine Fumarate 300 MG TABLET 600 MG PO (20:10)
[2022-08-07] MEDS: OXcarbazepine 300 MG TABLET PO (20:10)
[2022-08-08] MEDS: risperiDONE 2 MG TABLET PO ×2 (09:20→20:11)
[2022-08-08] MEDS: QUEtiapine Fumarate 100 MG TABLET PO (09:20)
[2022-08-08] MEDS: Cholecalciferol (Vitamin D3) 25 MCG TABLET 50 MCG PO (09:20)
[2022-08-08] MEDS: QUEtiapine Fumarate 200 MG TABLET PO (09:20)
[2022-08-08] MEDS: Amoxicillin/Potassium Clav 875 MG TABLET PO ×2 (09:20→20:11)
[2022-08-08] MEDS: OXcarbazepine 300 MG TABLET PO ×2 (09:21→20:11)
[2022-08-08 09:24] VITALS: BP 114/54; PULSE 68; RESP 14; TEMP 36.3
[2022-08-08] MEDS: Multivitamin TABLET 1 TAB PO (09:35)
--- NOTE | 2022-08-08 17:54 | P.HPPS_ITS ---
HPI Date of Service: 08/08/22 Chief Complaint: Schizophrenia Sources of Information: patient interviewed, chart reviewed and crisis/core team assessment reviewed HPI Subjective Notes: [place] Warning and Conditional Voluntary Healthcare Proxy: No Guardianship: No Medical Problems Affecting Mental Status: No Narrative: I am a cruel, bad, person. I need you to make me around, so I don't want to hurt/kill people. Yes, I am mad. 56 yo female, hx of schizoaffective d isorder, cocaine use disorder, alcohol use disorder, to ER via room-mate after she was found attempting to harm room-mates cat. Toxicolgy positive for cocaine and fentanyl. Pt affirms SI, HI, AH, VH. Reports daily cocaine. Reports feeling abandoned by family friends and mom who has . Past Psychiatric History: You don't need to know that Pt has a PCP with [facility] Psychiatric Provider Viktoria Zhu [phone] [facility] [phone] Medical Evaluation Reviewed: Yes PMF Family History: Declines to share information Social History: Declines to share information Substance History: Cocaine, Fentanyl Trauma History: Affirms Diagnostics Vital Signs (24Hr): Vital Signs - 24 hr 08/07/22 20:09 08/08/22 09:24 Temperature 97.4 F Pulse Rate 101 H 68 Respiratory Rate 14 Blood Pressure 131/61 114/54 L Oxygen Delivery Method Room Air BMI result Body Mass Index 29.0 Labs 08/07/22 13:57 08/07/22 13:57 Labs: Laboratory Results - last 48 hr 08/07/22 08/07/22 08/07/22 09:51 09:51 09:51 WBC RBC Hgb Hct MCV MCH MCHC RDW Plt Count MPV Immature Gran % (Auto) Neut % (Auto) Lymph % (Auto) [place] % (Auto) Eos % (Auto) Baso % (Auto) Lymph # (Auto) [place] # (Auto) Eos # (Auto) Baso # (Auto) Abs Immat Gran (auto) Absolute Neuts (auto) Absolute Nucleated RBC Nucleated RBC % (auto) Sodium Potassium Chloride Carbon Dioxide Anion Gap BUN Creatinine Estim Creat Clear Calc Estimated GFR Random Glucose Calcium Magnesium Total Bilirubin Direct Bilirubin AST ALT Alkaline Phosphatase Total Protein Albumin Urine Color Yellow Urine Appearance Clear Urine pH 5.5 Ur Specific [place] 1.025 Urine Protein Negative Urine Glucose (UA) Negative Urine Ketones Negative Urine Blood Negative Urine Nitrite Negative Ur Leukocyte Esterase Moderate (2+) H Urine RBC 0-2 Urine WBC 11-20 H Ur Squamous Epith Cells 3-5 Urine Bacteria None Seen Hyaline Casts 0-2 Urine Test NEGATIVE Urine Opiates Screen Urine Fentanyl Screen Ur Barbiturates Screen Ur Phencyclidine Scrn Ur Amphetamines Screen U Benzodiazepines Scrn Urine Cocaine Screen U Marijuana (THC) Screen Ethyl Alcohol COVID-19 ([facility]) Negative COVID-19 Clin Com See Note 08/07/22 08/07/22 08/07/22 09:51 13:57 13:57 WBC Cancelled RBC Cancelled Hgb Cancelled Hct Cancelled MCV Cancelled MCH Cancelled MCHC Cancelled RDW Cancelled Plt Count Cancelled MPV Cancelled Immature Gran % (Auto) Cancelled Neut % (Auto) Cancelled Lymph % (Auto) Cancelled [place] % (Auto) Cancelled Eos % (Auto) Cancelled Baso % (Auto) Cancelled Lymph # (Auto) Cancelled [place] # (Auto) Cancelled Eos # (Auto) Cancelled Baso # (Auto) Cancelled Abs Immat Gran (auto) Cancelled Absolute Neuts (auto) Cancelled Absolute Nucleated RBC Cancelled Nucleated RBC % (auto) Cancelled Sodium Cancelled Potassium Cancelled Chloride Cancelled Carbon Dioxide Cancelled Anion Gap Cancelled BUN Cancelled Creatinine Cancelled Estim Creat Clear Calc Cancelled Estimated GFR Cancelled Random Glucose Cancelled Calcium Cancelled Magnesium Cancelled Total Bilirubin Cancelled Direct Bilirubin Cancelled AST Cancelled ALT Cancelled Alkaline Phosphatase Cancelled Total Protein Cancelled Albumin Cancelled Urine Color Urine Appearance Urine pH Ur Specific [place] Urine Protein Urine Glucose (UA) Urine Ketones Urine Blood Urine Nitrite Ur Leukocyte Esterase Urine RBC Urine WBC Ur Squamous Epith Cells Urine Bacteria Hyaline Casts Urine Test Urine Opiates Screen Not Detected Urine Fentanyl Screen POSITIVE H Ur Barbiturates Screen Not Detected Ur Phencyclidine Scrn Not Detected Ur Amphetamines Screen Not Detected U Benzodiazepines Scrn Not Detected Urine Cocaine Screen POSITIVE H U Marijuana (THC) Screen Not Detected Ethyl Alcohol Cancelled COVID-19 ([facility]) COVID-[facility] Com 08/07/22 13:57 WBC RBC Hgb Hct MCV MCH MCHC RDW Plt Count MPV Immature Gran % (Auto) Neut % (Auto) Lymph % (Auto) [place] % (Auto) Eos % (Auto) Baso % (Auto) Lymph # (Auto) [place] # (Auto) Eos # (Auto) Baso # (Auto) Abs Immat Gran (auto) Absolute Neuts (auto) Absolute Nucleated RBC Nucleated RBC % (auto) Sodium Potassium Chloride Carbon Dioxide Anion Gap BUN Creatinine Estim Creat Clear Calc Estimated GFR Random Glucose Calcium Magnesium Total Bilirubin Direct Bilirubin AST ALT Alkaline Phosphatase Total Protein Albumin Urine Color Urine Appearance Urine pH Ur Specific [place] Urine Protein Urine Glucose (UA) Urine Ketones Urine Blood Urine Nitrite Ur Leukocyte Esterase Urine RBC Urine WBC Ur Squamous Epith Cells Urine Bacteria Hyaline Casts Urine Test Urine Opiates Screen Urine Fentanyl Screen Ur Barbiturates Screen Ur Phencyclidine Scrn Ur Amphetamines Screen U Benzodiazepines Scrn Urine Cocaine Screen U Marijuana (THC) Screen Ethyl Alcohol < 10 COVID-19 ([facility]) COVID-19 Clin Com Meds/Allergies Meds Home Medications Medication Instructions Recorded Confirmed Type albuterol sulfate 90 mcg/actuation 2 puff inhalation Q4H PRN wheezing 08/07/22 08/07/22 History aerosol inhaler (Ventolin HFA) budesonide-formoterol HFA 160 2 puff inhalation BID 08/07/22 08/07/22 History mcg-4.5 mcg/actuation aerosol inhaler (Symbicort) cholecalciferol (vitamin D3) 50 1 cap PO DAILY 08/07/22 08/07/22 History mcg (2,000 unit) capsule diphenhydramine HCl 50 mg capsule 1 cap PO Q12H PRN Agitation 08/07/22 08/07/22 History (Banophen) multivitamin with folic acid 400 1 tab PO DAILY 08/07/22 08/07/22 History mcg tablet (Daily-Rupinder (with folic acid)) oxcarbazepine 300 mg tablet 1 tab PO BID 08/07/22 08/07/22 History prazosin 1 mg capsule 1 cap PO BEDTIME 08/07/22 08/07/22 History quetiapine 100 mg tablet 100 mg PO DAILY@1400 08/07/22 08/07/22 History quetiapine 100 mg tablet 200 mg PO DAILY@0900 08/07/22 08/07/22 History quetiapine 300 mg tablet (Seroquel) 2 tab PO BEDTIME 08/07/22 08/07/22 History risperidone 2 mg tablet 1 tab PO BID 08/07/22 08/07/22 History Allergies Allergies Allergy/AdvReac Type Severity Reaction Status Date / Time Tetracyclines Allergy Unknown Verified 08/07/22 09:43 Mental Status Exam Mental Status Exam Patient Appearance: Fatigued and Bizarre (primative) Patient Orientation: Person Level of Consciousness: Alert Patient Behavior: Guarded, Suspicious, Anxious, Fearful, Avoidant, Fatigued, Distractible and Good Eye Contact Mood Description: Hostile and Labile Affect Description: Hostile and Labile Patient Cognition Impaired: No Ability to Follow Directions: Good Speech Pattern: Perseverating, Spontaneous Speech and Soft-Spoken Memory Description: Remote Impaired and Episodic Impaired Hallucinations: Auditory and Visual Delusions: Paranoid Ideation and Present Perceptual Disturbances: Hallucinations Thought Process: Distracted and Rumination Thought Content: positive for Circumstantial, positive for Thought Blocking, positive for Suicidal Ideation and positive for Homicidal Ideation Depressive Symptoms: Difficulty Sleeping, Feelings of Guilt and Thoughts of /Suicide Judgement: Poor Assessment & Plan Assessment & Plan (1) Schizophrenia: Status: Acute Code(s): F20.9 - Schizophrenia, unspecified (2) Polysubstance abuse: Status: Acute Code(s): F19.10 - Other psychoactive substance abuse, uncomplicated Plan 56 yo female with hx of schizophrenia, substance abuse presents with SI,HI, AH,VH after attempts to harm room-mates cat. Pt asks for assistance in sx mgt. She is on a significant regime and questions compliance prior to admission. Plan: Re-establish regime Monitor Collateral contact to providers Pt refusing all diagnostics. Patient educated on: therapeutic strategies Informed Consent: does not understand Reason for continued inpatient stay Substantial Risk for: rapid decompensation Statement Statement: I have reviewed the history and physical and performed a pertinent examination on my patient. No changes have occurred unless specified. If the History and Physical was not performed prior to admission, the Hospitalist's service will be consulted for completing the admission physical. Time Spent With Patient Time: Total time managing care of this patient today __40__ minutes.
[2022-08-08 18:00] VITALS: BP 123/62; PULSE 83; RESP 18; O2SAT 98
[2022-08-08] MEDS: Prazosin HCL 1 MG CAPSULE PO (20:11)
[2022-08-08] MEDS: QUEtiapine Fumarate 300 MG TABLET 600 MG PO (20:11)
[2022-08-09] MEDS: Multivitamin TABLET 1 TAB PO (09:18)
[2022-08-09] MEDS: QUEtiapine Fumarate 200 MG TABLET PO (09:18)
[2022-08-09] MEDS: QUEtiapine Fumarate 100 MG TABLET PO (09:18)
[2022-08-09] MEDS: risperiDONE 2 MG TABLET PO ×2 (09:18→21:24)
[2022-08-09] MEDS: Cholecalciferol (Vitamin D3) 25 MCG TABLET 50 MCG PO (09:18)
[2022-08-09] MEDS: OXcarbazepine 300 MG TABLET PO ×2 (09:18→21:24)
[2022-08-09] MEDS: Amoxicillin/Potassium Clav 875 MG TABLET PO ×2 (09:18→21:24)
[2022-08-09 09:22] VITALS: BP 115/70; PULSE 90; RESP 18; TEMP 36.4; O2SAT 93
--- NOTE | 2022-08-09 19:25 | P.PNPSI_ITS ---
Subjective Subjective Date of Service: 08/09/22 Reason For Visit: Schizophrenia Interim History: Care review with nursing. Continues with irritable edge, isolative. Allowing re-establishment of regime Some improvement noted, however, continues to have an edge. Not wanting to have a process session at this time. Continues to refuse diagnostics. Medication Compliance: Yes Side effects from medications: No Attending Groups: No Review of Systems refused diagnostics Medical Review of Systems: unchanged Mental Status Exam Mental Status Exam Patient Appearance: Fatigued and Bizarre (primative) Patient Orientation: Person Level of Consciousness: Alert Patient Behavior: Guarded, Suspicious, Anxious, Fearful, Avoidant, Fatigued, Distractible and Good Eye Contact Mood Description: Hostile and Labile Affect Description: Hostile and Labile Patient Cognition Impaired: No Ability to Follow Directions: Good Speech Pattern: Perseverating, Spontaneous Speech and Soft-Spoken Memory Description: Remote Impaired and Episodic Impaired Hallucinations: Auditory and Visual Delusions: Paranoid Ideation and Present Perceptual Disturbances: Hallucinations Thought Process: Distracted and Rumination Thought Content: positive for Circumstantial, positive for Thought Blocking, positive for Suicidal Ideation and positive for Homicidal Ideation Depressive Symptoms: Difficulty Sleeping, Feelings of Guilt and Thoughts of /Suicide Judgement: Poor Diagnostics Vital Signs (24Hr): Vital Signs - 24 hr 08/09/22 09:22 Temperature 97.6 F Pulse Rate 90 Respiratory Rate 18 Blood Pressure 115/70 Pulse Oximetry 93 Oxygen Delivery Method Room Air BMI result Body Mass Index 29.0 Labs 08/07/22 13:57 08/07/22 13:57 Medications Medications Current Medications Acetaminophen (Acetaminophen 325 Mg Tablet) 650 mg PO Q6H PRN PRN Reason: Headache/Pain Mild Scale (1-3) Al Hydroxide/Mg Hydroxide (Magnesium Hydrox/Alum Hydrox 30 Ml Oral.Susp) 30 ml PO Q6H PRN PRN Reason: Heartburn/Nausea Albuterol Sulfate (Albuterol Sulfate 90 Mcg 8 Gm Inhaler) 2 puff INHALE Q4H PRN PRN Reason: wheezing Amoxicillin/Clavulanate Potassium (Amoxicillin/Potassium Clav 875 Mg Tablet) 875 mg PO BID ANNY Last Admin: 08/09/22 09:18 Dose: 875 mg Diphenhydramine HCl (Diphenhydramine Hcl 25 Mg Capsule) 50 mg PO Q12H PRN PRN Reason: Agitation Fluticasone/Vilanterol (Fluticasone/Vilanterol 200/25 Blst.W.Dev) 1 puff INHALE RDAILY [facility] Last Admin: 08/09/22 09:21 Dose: Not Given Hydroxyzine HCl (Hydroxyzine Hcl 25 Mg Tablet) 25 mg PO Q6H PRN PRN Reason: Anxiety Magnesium Hydroxide (Milk Of Magnesia 30 Ml Oral.Susp) 30 ml PO DAILY PRN PRN Reason: Constipation Multivitamins/Vitamin C (Multivitamin Tablet) 1 tab PO DAILY [facility] Last Admin: 08/09/22 09:18 Dose: 1 tab Oxcarbazepine (Oxcarbazepine 300 Mg Tablet) 300 mg PO BID [facility] Last Admin: 08/09/22 09:18 Dose: 300 mg Prazosin HCl (Prazosin Hcl 1 Mg Capsule) 1 mg PO BEDTIME [facility]; Protocol Last Admin: 08/08/22 20:11 Dose: 1 mg Quetiapine Fumarate (Quetiapine Fumarate 100 Mg Tablet) 100 mg PO DAILY [facility] Last Admin: 08/09/22 09:18 Dose: 100 mg Quetiapine Fumarate (Quetiapine Fumarate 200 Mg Tablet) 200 mg PO DAILY@0900 [facility] Last Admin: 08/09/22 09:18 Dose: 200 mg Quetiapine Fumarate (Quetiapine Fumarate 300 Mg Tablet) 600 mg PO BEDTIME [facility] Last Admin: 08/08/22 20:11 Dose: 600 mg Risperidone (Risperidone 2 Mg Tablet) 2 mg PO BID [facility] Last Admin: 08/09/22 09:18 Dose: 2 mg Trazodone HCl (Trazodone Hcl 50 Mg Tablet) 50 mg PO BEDTIME PRN PRN Reason: Insomnia Vitamin D (Cholecalciferol (Vitamin D3) 25 Mcg Tablet) 50 mcg PO DAILY [facility] Last Admin: 08/09/22 09:18 Dose: 50 mcg Allergies Allergies Allergy/AdvReac Type Severity Reaction Status Date / Time Tetracyclines Allergy Unknown Verified 08/07/22 09:43 Assessment & Plan Assessment & Plan (1) Schizophrenia: Status: Acute Code(s): F20.9 - Schizophrenia, unspecified (2) Polysubstance abuse: Status: Acute Code(s): F19.10 - Other psychoactive substance abuse, uncomplicated Plan 56 yo female with hx of schizophrenia, substance abuse presents with SI,HI, AH,VH after attempts to harm room-mates cat. Pt asks for assistance in sx mgt. She is on a significant regime and questions compliance prior to admission. Plan: Re-establish regime Monitor Collateral contact to providers Pt refusing all diagnostics. 08/09/22 Continue to monitor No changes today Informed Consent: understands Reason for contiued inpatient stay Substantial Risk for: rapid decompensation Time Spent With Patient Time: Total time managing care of this patient today ____ minutes.
[2022-08-09 21:23] VITALS: BP 122/86; PULSE 80; RESP 16; TEMP 36.2; O2SAT 94
[2022-08-09] MEDS: QUEtiapine Fumarate 300 MG TABLET 600 MG PO (21:24)
[2022-08-09] MEDS: Prazosin HCL 1 MG CAPSULE PO (21:24)
[2022-08-10] MEDS: QUEtiapine Fumarate 200 MG TABLET PO (08:43)
[2022-08-10] MEDS: risperiDONE 2 MG TABLET PO ×2 (08:43→20:53)
[2022-08-10] MEDS: OXcarbazepine 300 MG TABLET PO ×2 (08:43→20:53)
[2022-08-10] MEDS: QUEtiapine Fumarate 100 MG TABLET PO (08:43)
[2022-08-10] MEDS: Amoxicillin/Potassium Clav 875 MG TABLET PO ×2 (08:43→20:53)
[2022-08-10] MEDS: Cholecalciferol (Vitamin D3) 25 MCG TABLET 50 MCG PO (08:44)
[2022-08-10] MEDS: Multivitamin TABLET 1 TAB PO (08:44)
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
[2022-08-10 20:52] VITALS: BP 105/53; PULSE 74
[2022-08-10] MEDS: Prazosin HCL 1 MG CAPSULE PO (20:53)
[2022-08-10] MEDS: QUEtiapine Fumarate 300 MG TABLET 600 MG PO (20:53)
[2022-08-11 06:00] VITALS: BP 97/54; PULSE 70; RESP 20; TEMP 36.8; O2SAT 94
[2022-08-11] MEDS: Amoxicillin/Potassium Clav 875 MG TABLET PO ×2 (09:23→21:53)
[2022-08-11] MEDS: QUEtiapine Fumarate 200 MG TABLET PO (09:23)
[2022-08-11] MEDS: Multivitamin TABLET 1 TAB PO (09:23)
[2022-08-11] MEDS: OXcarbazepine 300 MG TABLET PO ×2 (09:23→21:53)
[2022-08-11] MEDS: Cholecalciferol (Vitamin D3) 25 MCG TABLET 50 MCG PO (09:23)
[2022-08-11] MEDS: risperiDONE 2 MG TABLET PO ×2 (09:23→21:53)
[2022-08-11] MEDS: buPROPion HCl XL 150 MG TAB.ER.24H PO (14:41)
[2022-08-11] MEDS: QUEtiapine Fumarate 100 MG TABLET PO (14:41)
--- NOTE | 2022-08-11 18:56 | HO.PSYCHPN ---
Subjective Subjective Date of Service: 08/11/22 Reason For Visit: Schizophrenia Interim History: Late entry note for patient seen 08/11 Met with patient; discussed case with team Patient remains alone in her room with the lights out. She remains depressed with passive SI. Again discussed medications and since patient has been overall stable on both Seroquel and Risperdal, and can get dangerous when decompensated, patient agrees to remain on these 2 medications but to add Wellbutrin to see if it can help with mood. To designer/writer, she was pleasant, calm on approach but discussion was kept short. With other staff, irritable Mental Status Exam Mental Status Exam Narrative: Pt is alert and oriented; behavior is marginally cooperative; intermittently irritable; patient is not in distress; dressed in casual attire, disheveled, malodorous; mood is described as depressed, very much so and affect congruent and constricted; eye contact appropriate; Speech is normal rate, volume and prosody and not pressured (can be a little hard to understand due to edentulous?); psychomotor retardation present; thought process is goal directed; Thought content is with passive SI; sadness over mothers ; otherwise pertinent to relevant topics; mild paranoid ideations possible; denies any active SI/no HI. Intermittent AH at nighttime. Patients insight and judgment are impaired. Diagnostics Vital Signs (24Hr): Vital Signs - 24 hr 08/11/22 22:19 08/12/22 09:29 Temperature 97.8 F 97.8 F Pulse Rate 75 84 Respiratory Rate 16 16 Blood Pressure 124/62 135/61 Pulse Oximetry 98 93 Oxygen Delivery Method Room Air Room Air BMI result Body Mass Index 29.0 Labs 08/07/22 13:57 08/07/22 13:57 Medications Medications Current Medications Acetaminophen (Acetaminophen 325 Mg Tablet) 650 mg PO Q6H PRN PRN Reason: Headache/Pain Mild Scale (1-3) Al Hydroxide/Mg Hydroxide (Magnesium Hydrox/Alum Hydrox 30 Ml Oral.Susp) 30 ml PO Q6H PRN PRN Reason: Heartburn/Nausea Albuterol Sulfate (Albuterol Sulfate 90 Mcg 8 Gm Inhaler) 2 puff INHALE Q4H PRN PRN Reason: wheezing Amoxicillin/Clavulanate Potassium (Amoxicillin/Potassium Clav 875 Mg Tablet) 875 mg PO BID [facility] Last Admin: 08/12/22 08:56 Dose: 875 mg Bupropion HCl (Bupropion Hcl Xl 150 Mg Tab.Er.24h) 150 mg PO DAILY [facility] Last Admin: 08/12/22 09:01 Dose: Not Given Diphenhydramine HCl (Diphenhydramine Hcl 25 Mg Capsule) 50 mg PO Q12H PRN PRN Reason: Agitation Fluticasone/Vilanterol (Fluticasone/Vilanterol 200/25 Blst.W.Dev) 1 puff INHALE RDAILY [facility] Last Admin: 08/12/22 09:28 Dose: Not Given Hydroxyzine HCl (Hydroxyzine Hcl 25 Mg Tablet) 25 mg PO Q6H PRN PRN Reason: Anxiety Magnesium Hydroxide (Milk Of Magnesia 30 Ml Oral.Susp) 30 ml PO DAILY PRN PRN Reason: Constipation Multivitamins/Vitamin C (Multivitamin Tablet) 1 tab PO DAILY [facility] Last Admin: 08/12/22 08:57 Dose: 1 tab Oxcarbazepine (Oxcarbazepine 300 Mg Tablet) 300 mg PO BID [facility] Last Admin: 08/12/22 08:57 Dose: 300 mg Prazosin HCl (Prazosin Hcl 1 Mg Capsule) 1 mg PO BEDTIME [facility]; Protocol Last Admin: 08/11/22 21:52 Dose: 1 mg Quetiapine Fumarate (Quetiapine Fumarate 200 Mg Tablet) 200 mg PO DAILY@0900 [facility] Last Admin: 08/12/22 08:56 Dose: 200 mg Quetiapine Fumarate (Quetiapine Fumarate 300 Mg Tablet) 600 mg PO BEDTIME [facility] Last Admin: 08/11/22 21:53 Dose: 600 mg Quetiapine Fumarate (Quetiapine Fumarate 100 Mg Tablet) 100 mg PO DAILY@1400 [facility] Last Admin: 08/11/22 14:41 Dose: 100 mg Risperidone (Risperidone 2 Mg Tablet) 2 mg PO BID [facility] Last Admin: 08/12/22 08:56 Dose: 2 mg Trazodone HCl (Trazodone Hcl 50 Mg Tablet) 50 mg PO BEDTIME PRN PRN Reason: Insomnia Vitamin D (Cholecalciferol (Vitamin D3) 25 Mcg Tablet) 50 mcg PO DAILY [facility] Last Admin: 08/12/22 08:56 Dose: 50 mcg Allergies Allergies Allergy/AdvReac Type Severity Reaction Status Date / Time Tetracyclines Allergy Unknown Verified 08/07/22 09:43 Assessment & Plan Assessment & Plan (1) Schizophrenia: Status: Acute Code(s): F20.9 - Schizophrenia, unspecified (2) Polysubstance abuse: Status: Acute Code(s): F19.10 - Other psychoactive substance abuse, uncomplicated Plan 56 yo female with hx of schizophrenia, substance abuse, PTSD presents with SI,HI, AH,VH after attempts to harm her cat. Pt asks for assistance in sx mgt. Patient has become increasingly depressed since her mother about a year and a half ago. Hospital course: 08/09/22 Continue to monitor No changes today 08/10 Helminthology Teacher discussed case with Dr. Gay, patient's outpatient psychiatrist. Patient would like to remain on current regimen for now but is open to medication changes to help with depression primarily. Will leave on current regimen for now to better assess. 08/11 remains depressed, in room, irritable; agrees to trying Wellbutrin for depression. Helminthology Teacher discussed and patient agrees that patient has been relatively stable on Seroquel and Risperdal and so patient wants to remain on it. Of note, when patient decompensates she can become dangerous and as these medications have helped keep her stable, designer/writer would prefers to continue them at this time. Plan: CV q15 min SINGLE ROOM OCCUPANCY -start Wellbutrin XL 150 mg daily for depression Continue Home med reg: Trileptal 300mg BID Seroquel: 200mg 9am 100mg 2pm 600mg bed Prazosin 1mg bed Risperdal 2mg bid Benadryl 50mg BID prn Patient educated on: diagnosis and medication risk/benefits Informed Consent: understands Reason for contiued inpatient stay Substantial Risk for: rapid decompensation and med/psych decompensation Time Spent With Patient Time: Total time managing care of this patient today ____ minutes.
[2022-08-11] MEDS: Prazosin HCL 1 MG CAPSULE PO (21:52)
[2022-08-11] MEDS: QUEtiapine Fumarate 300 MG TABLET 600 MG PO (21:53)
[2022-08-11 22:19] VITALS: BP 124/62; PULSE 75; RESP 16; TEMP 36.6; O2SAT 98
--- NOTE | 2022-08-12 08:37 | PC.NURSE ---
T/w followed up with pt who currently declined nicotine patch. Svetlanaw advised pt she may request one at any time.
[2022-08-12] MEDS: Cholecalciferol (Vitamin D3) 25 MCG TABLET 50 MCG PO (08:56)
[2022-08-12] MEDS: risperiDONE 2 MG TABLET PO ×2 (08:56→21:40)
[2022-08-12] MEDS: Amoxicillin/Potassium Clav 875 MG TABLET PO ×2 (08:56→21:39)
[2022-08-12] MEDS: QUEtiapine Fumarate 200 MG TABLET PO (08:56)
[2022-08-12] MEDS: Multivitamin TABLET 1 TAB PO (08:57)
[2022-08-12] MEDS: OXcarbazepine 300 MG TABLET PO ×2 (08:57→21:40)
[2022-08-12 09:29] VITALS: BP 135/61; PULSE 84; RESP 16; TEMP 36.6; O2SAT 93
--- NOTE | 2022-08-12 12:17 | P.PNPSI_ITS ---
Subjective Subjective Date of Service: 08/12/22 Reason For Visit: Schizophrenia Interim History: Met with patient; discussed case with team; discussed case again with nursing who had positive interaction with patient. Hooker Laster researched literature regarding schizophrenia and depression Patient much more willing to engage and took a shower this morning; she also has spent time in the milieu which is new. Patient is pleasant and friendly on approach. She reports that yesterday on Wellbutrin her whole body got the butterflies and she intermittently felt a zapping sensation in her hands and feet throughout the day. She said Wellbutrin is not for me. Hooker Laster discussed feeling sad about her mother; also discussed her change in therapist. Patient said that she really liked her former therapist and had been with her for 3 years; she discussed how hard it was to have to change to a new 1. Discussed more about medications and patient agrees to trial of SSRI or SNRI for depressi on. She denies any SI or HI and says that AH has resolved. Mental Status Exam Mental Status Exam Narrative: Pt is alert and oriented; behavior is cooperative, pleasant and calm; patient is not in distress; dressed in casual attire with adequate hygiene and no longer malodorous; mood is described as depressed and affect congruent; eye contact appropriate; Speech is normal rate, volume and prosody and not pressured (can be a little hard to understand due to edentulous?); psychomotor retardation present; thought process is goal directed and linear; Thought content is on treatment; sadness over mothers ; otherwise pertinent to relevant topics; no paranoid ideations expressed; passive SI resolved; denies any active SI/no HI. Denies AH. Patients insight and judgment are impaired but improving. Diagnostics Vital Signs (24Hr): Vital Signs - 24 hr 08/11/22 22:19 08/12/22 09:29 Temperature 97.8 F 97.8 F Pulse Rate 75 84 Respiratory Rate 16 16 Blood Pressure 124/62 135/61 Pulse Oximetry 98 93 Oxygen Delivery Method Room Air Room Air BMI result Body Mass Index 29.0 Labs 08/07/22 13:57 08/07/22 13:57 Medications Medications Current Medications Acetaminophen (Acetaminophen 325 Mg Tablet) 650 mg PO Q6H PRN PRN Reason: Headache/Pain Mild Scale (1-3) Al Hydroxide/Mg Hydroxide (Magnesium Hydrox/Alum Hydrox 30 Ml Oral.Susp) 30 ml PO Q6H PRN PRN Reason: Heartburn/Nausea Albuterol Sulfate (Albuterol Sulfate 90 Mcg 8 Gm Inhaler) 2 puff INHALE Q4H PRN PRN Reason: wheezing Amoxicillin/Clavulanate Potassium (Amoxicillin/Potassium Clav 875 Mg Tablet) 875 mg PO BID [facility] Last Admin: 08/12/22 08:56 Dose: 875 mg Bupropion HCl (Bupropion Hcl Xl 150 Mg Tab.Er.24h) 150 mg PO DAILY [facility] Last Admin: 08/12/22 09:01 Dose: Not Given Diphenhydramine HCl (Diphenhydramine Hcl 25 Mg Capsule) 50 mg PO Q12H PRN PRN Reason: Agitation Fluticasone/Vilanterol (Fluticasone/Vilanterol 200/25 Blst.W.Dev) 1 puff INHALE RDAILY [facility] Last Admin: 08/12/22 09:28 Dose: Not Given Hydroxyzine HCl (Hydroxyzine Hcl 25 Mg Tablet) 25 mg PO Q6H PRN PRN Reason: Anxiety Magnesium Hydroxide (Milk Of Magnesia 30 Ml Oral.Susp) 30 ml PO DAILY PRN PRN Reason: Constipation Multivitamins/Vitamin C (Multivitamin Tablet) 1 tab PO DAILY [facility] Last Admin: 08/12/22 08:57 Dose: 1 tab Oxcarbazepine (Oxcarbazepine 300 Mg Tablet) 300 mg PO BID [facility] Last Admin: 08/12/22 08:57 Dose: 300 mg Prazosin HCl (Prazosin Hcl 1 Mg Capsule) 1 mg PO BEDTIME [facility]; Protocol Last Admin: 08/11/22 21:52 Dose: 1 mg Quetiapine Fumarate (Quetiapine Fumarate 200 Mg Tablet) 200 mg PO DAILY@0900 [facility] Last Admin: 08/12/22 08:56 Dose: 200 mg Quetiapine Fumarate (Quetiapine Fumarate 300 Mg Tablet) 600 mg PO BEDTIME [facility] Last Admin: 08/11/22 21:53 Dose: 600 mg Quetiapine Fumarate (Quetiapine Fumarate 100 Mg Tablet) 100 mg PO DAILY@1400 [facility] Last Admin: 08/11/22 14:41 Dose: 100 mg Risperidone (Risperidone 2 Mg Tablet) 2 mg PO BID [facility] Last Admin: 08/12/22 08:56 Dose: 2 mg Trazodone HCl (Trazodone Hcl 50 Mg Tablet) 50 mg PO BEDTIME PRN PRN Reason: Insomnia Vitamin D (Cholecalciferol (Vitamin D3) 25 Mcg Tablet) 50 mcg PO DAILY [facility] Last Admin: 08/12/22 08:56 Dose: 50 mcg Allergies Allergies Allergy/AdvReac Type Severity Reaction Status Date / Time Tetracyclines Allergy Unknown Verified 08/07/22 09:43 Assessment & Plan Assessment & Plan (1) Schizophrenia: Status: Acute Code(s): F20.9 - Schizophrenia, unspecified (2) Polysubstance abuse: Status: Acute Code(s): F19.10 - Other psychoactive substance abuse, uncomplicated Plan 56 yo female with hx of schizophrenia, substance abuse, PTSD presents with SI,HI, AH,VH after attempts to harm her cat. Pt asks for assistance in sx mgt. Patient has become increasingly depressed since her mother about a year and a half ago. Hospital course: 08/09/22 Continue to monitor No changes today 08/10 Hooker Laster discussed case with Dr. Gay, patient's outpatient psychiatrist. Patient would like to remain on current regimen for now but is open to medication changes to help with depression primarily. Will leave on current regimen for now to better assess. 08/11 remains depressed, in room, irritable; agrees to trying Wellbutrin for depression. Hooker Laster discussed and patient agrees that patient has been relatively stable on Seroquel and Risperdal and so patient wants to remain on it. Of note, when patient decompensates she can become dangerous and as these medications have helped keep her stable, radio script writer would prefers to continue them at this time. 08/12 patient more friendly, engaged; psychotic symptoms seems to have dissipated. Patient agrees to trying SSRI as she did not tolerate Wellbutrin Hooker Laster researched literature regarding schizophrenia and depression which indicates trials have shown statistically significant results with SSRI/TCA's Plan: CV q15 min SINGLE ROOM OCCUPANCY Start Prozac 10mg daily for depression: -DC Wellbutrin XL; not tolerated Continue Home med reg: Trileptal 300mg BID Seroquel: 200mg 9am 100mg 2pm 600mg bed Prazosin 1mg bed Risperdal 2mg bid Benadryl 50mg BID prn Patient educated on: diagnosis and medication risk/benefits Informed Consent: understands Reason for contiued inpatient stay Substantial Risk for: rapid decompensation Time Spent With Patient Time: Total time managing care of this patient today ____ minutes.
[2022-08-12] MEDS: QUEtiapine Fumarate 100 MG TABLET PO (13:50)
[2022-08-12] MEDS: FLUoxetine HCl 10 MG CAPSULE PO (13:50)
[2022-08-12] MEDS: Prazosin HCL 1 MG CAPSULE PO (21:40)
[2022-08-12] MEDS: QUEtiapine Fumarate 300 MG TABLET 600 MG PO (21:40)
[2022-08-13 06:00] VITALS: BP 117/56; PULSE 87; RESP 18; TEMP 36.7; O2SAT 88
--- NOTE | 2022-08-13 09:02 | P.PNPSI_ITS ---
Subjective Subjective Date of Service: 08/13/22 Reason For Visit: Schizophrenia Interim History: met w/ patient; discussed in teams; updated outpt provider pt reports feeling a little better; she still intermittently barks at staff but much less. Pt shared how she's been out and about in the milue. Pt denies SI or HI; she denies AVH. She reports intermittent angry bouts where she is cussing out folks in her mind. Pt shared how hard it was to lose her mother; she say her mother had cancer but did not tell anyone but kept it to herself. She Thus got sick and 3 days later. Pt wished she had known so she could have spent more time with her. Patient shared how much she needs someone to talk to. Map Mounter discussed therapy w/ patient and she agreed to consider stating to go to new one. no side-effects from prozac. pt reported SOB did focused exam and pt B/L wheezing up/down. Ordered duonebs and SOB resolved. Mental Status Exam Mental Status Exam Narrative: Pt is alert and oriented; behavior is cooperative, pleasant and calm; patient is not in distress; dressed in casual attire with adequate hygiene and no longer malodorous; mood is described as little better and affect congruent; eye contact appropriate; Speech is normal rate, volume and prosody and not pressured (can be a little hard to understand due to edentulous?); psychomotor retardation present; thought process is goal directed and linear; Thought content is on treatment; sadness over mothers ; otherwise pertinent to relevant topics; no paranoid ideations expressed; passive SI resolved; denies any active SI/no HI. Denies AH. Patients insight and judgment are impaired but improving. Diagnostics Vital Signs (24Hr): Vital Signs - 24 hr 08/12/22 09:29 Temperature 97.8 F Pulse Rate 84 Respiratory Rate 16 Blood Pressure 135/61 Pulse Oximetry 93 Oxygen Delivery Method Room Air BMI result Body Mass Index 29.0 Labs 08/07/22 13:57 08/07/22 13:57 Medications Medications Current Medications Acetaminophen (Acetaminophen 325 Mg Tablet) 650 mg PO Q6H PRN PRN Reason: Headache/Pain Mild Scale (1-3) Al Hydroxide/Mg Hydroxide (Magnesium Hydrox/Alum Hydrox 30 Ml Oral.Susp) 30 ml PO Q6H PRN PRN Reason: Heartburn/Nausea Albuterol Sulfate (Albuterol Sulfate 90 Mcg 8 Gm Inhaler) 2 puff INHALE Q4H PRN PRN Reason: wheezing Amoxicillin/Clavulanate Potassium (Amoxicillin/Potassium Clav 875 Mg Tablet) 875 mg PO BID [facility] Last Admin: 08/12/22 21:39 Dose: 875 mg Bupropion HCl (Bupropion Hcl Xl 150 Mg Tab.Er.24h) 150 mg PO DAILY [facility] Last Admin: 08/12/22 09:01 Dose: Not Given Diphenhydramine HCl (Diphenhydramine Hcl 25 Mg Capsule) 50 mg PO Q12H PRN PRN Reason: Agitation Fluoxetine HCl (Fluoxetine Hcl 10 Mg Capsule) 10 mg PO DAILY [facility] Fluticasone/Vilanterol (Fluticasone/Vilanterol 200/25 Blst.W.Dev) 1 puff INHALE RDAILY [facility] Last Admin: 08/12/22 09:28 Dose: Not Given Hydroxyzine HCl (Hydroxyzine Hcl 25 Mg Tablet) 25 mg PO Q6H PRN PRN Reason: Anxiety Magnesium Hydroxide (Milk Of Magnesia 30 Ml Oral.Susp) 30 ml PO DAILY PRN PRN Reason: Constipation Multivitamins/Vitamin C (Multivitamin Tablet) 1 tab PO DAILY [facility] Last Admin: 08/12/22 08:57 Dose: 1 tab Oxcarbazepine (Oxcarbazepine 300 Mg Tablet) 300 mg PO BID [facility] Last Admin: 08/12/22 21:40 Dose: 300 mg Prazosin HCl (Prazosin Hcl 1 Mg Capsule) 1 mg PO BEDTIME [facility]; Protocol Last Admin: 08/12/22 21:40 Dose: 1 mg Quetiapine Fumarate (Quetiapine Fumarate 200 Mg Tablet) 200 mg PO DAILY@0900 [facility] Last Admin: 08/12/22 08:56 Dose: 200 mg Quetiapine Fumarate (Quetiapine Fumarate 300 Mg Tablet) 600 mg PO BEDTIME [facility] Last Admin: 08/12/22 21:40 Dose: 600 mg Quetiapine Fumarate (Quetiapine Fumarate 100 Mg Tablet) 100 mg PO DAILY@1400 [facility] Last Admin: 08/12/22 13:50 Dose: 100 mg Risperidone (Risperidone 2 Mg Tablet) 2 mg PO BID [facility] Last Admin: 08/12/22 21:40 Dose: 2 mg Trazodone HCl (Trazodone Hcl 50 Mg Tablet) 50 mg PO BEDTIME PRN PRN Reason: Insomnia Vitamin D (Cholecalciferol (Vitamin D3) 25 Mcg Tablet) 50 mcg PO DAILY [facility] Last Admin: 08/12/22 08:56 Dose: 50 mcg Allergies Allergies Allergy/AdvReac Type Severity Reaction Status Date / Time Tetracyclines Allergy Unknown Verified 08/07/22 09:43 Assessment & Plan Assessment & Plan (1) Schizophrenia: Status: Acute Code(s): F20.9 - Schizophrenia, unspecified (2) Polysubstance abuse: Status: Acute Code(s): F19.10 - Other psychoactive substance abuse, uncomplicated Plan 56 yo female with hx of schizophrenia, substance abuse, PTSD presents with SI,HI, AH,VH after attempts to harm her cat. Pt asks for assistance in sx mgt. Patient has become increasingly depressed since her mother about a year and a half ago. Hospital course: 08/09/22 Continue to monitor No changes today 08/10 Map Mounter discussed case with Dr. Gay, patient's outpatient psychiatrist. Patient would like to remain on current regimen for now but is open to medication changes to help with depression primarily. Will leave on current regimen for now to better assess. 08/11 remains depressed, in room, irritable; agrees to trying Wellbutrin for depr ession. Map Mounter discussed and patient agrees that patient has been relatively stable on Seroquel and Risperdal and so patient wants to remain on it. Of note, when patient decompensates she can become dangerous and as these medications have helped keep her stable, production underwriter would prefers to continue them at this time. 08/12 patient more friendly, engaged; psychotic symptoms seems to have dissipated. Patient agrees to trying SSRI as she did not tolerate Wellbutrin Map Mounter researched literature regarding schizophrenia and depression which indicates trials have shown statistically significant results with SSRI/TCA's 08/13 improving; tolerating Prozac; out of room more, more social, less irritable. episode of asthma exacerbation; resolved w/ duonebs Plan: CV q15 min SINGLE ROOM OCCUPANCY Conitnue Prozac 10mg daily for depression: -DC Wellbutrin XL; not tolerated Continue Home med reg: Trileptal 300mg BID Seroquel: 200mg 9am 100mg 2pm 600mg bed Prazosin 1mg bed Risperdal 2mg bid Benadryl 50mg BID prn Patient educated on: diagnosis, medication risk/benefits and therapeutic strategies Informed Consent: understands Reason for contiued inpatient stay Substantial Risk for: rapid decompensation Time Spent With Patient Time: Total time managing care of this patient today ____ minutes.
[2022-08-13] MEDS: Multivitamin TABLET 1 TAB PO (09:06)
[2022-08-13] MEDS: FLUoxetine HCl 10 MG CAPSULE PO (09:06)
[2022-08-13] MEDS: risperiDONE 2 MG TABLET PO ×2 (09:06→21:25)
[2022-08-13] MEDS: Cholecalciferol (Vitamin D3) 25 MCG TABLET 50 MCG PO (09:06)
[2022-08-13] MEDS: QUEtiapine Fumarate 200 MG TABLET PO (09:06)
[2022-08-13] MEDS: OXcarbazepine 300 MG TABLET PO ×2 (09:06→21:25)
[2022-08-13] MEDS: Amoxicillin/Potassium Clav 875 MG TABLET PO ×2 (09:06→21:25)
[2022-08-13] MEDS: Fluticasone/Vilanterol 200/25 BLST.W.DEV 1 PUFF INHALE (09:12)
[2022-08-13 09:42] VITALS: O2SAT 90
[2022-08-13] MEDS: Albuterol Sulfate 90 MCG 8 GM INHALER 2 PUFF INHALE (11:16)
[2022-08-13] MEDS: Albuterol/Iprat 2.5/0.5MG 3 ML AMPUL.NEB INHALE (12:39)
[2022-08-13 12:45] VITALS: PULSE 108; RESP 18; O2SAT 90
[2022-08-13 21:20] VITALS: BP 111/56; PULSE 88; TEMP 36.2
[2022-08-13] MEDS: QUEtiapine Fumarate 300 MG TABLET 600 MG PO (21:24)
[2022-08-13] MEDS: Prazosin HCL 1 MG CAPSULE PO (21:26)
[2022-08-14] MEDS: Cholecalciferol (Vitamin D3) 25 MCG TABLET 50 MCG PO (09:25)
[2022-08-14] MEDS: QUEtiapine Fumarate 200 MG TABLET PO (09:25)
[2022-08-14] MEDS: OXcarbazepine 300 MG TABLET PO ×2 (09:25→20:48)
[2022-08-14] MEDS: Amoxicillin/Potassium Clav 875 MG TABLET PO ×2 (09:25→20:48)
[2022-08-14] MEDS: FLUoxetine HCl 10 MG CAPSULE PO (09:25)
[2022-08-14] MEDS: Multivitamin TABLET 1 TAB PO (09:25)
[2022-08-14] MEDS: risperiDONE 2 MG TABLET PO ×2 (09:25→20:48)
[2022-08-14 09:34] VITALS: BP 107/53; PULSE 71; RESP 16; TEMP 36.1; O2SAT 93
--- NOTE | 2022-08-14 10:03 | HO.PSYCHPN ---
Subjective Subjective Date of Service: 08/14/22 Reason For Visit: Schizophrenia Interim History: met w/ patient; discussed in teams pt lying in bed alone in dark, however she has been out of room more overall. Pt reports she's feeling better, no SI, no HI, no AVH. Mental Status Exam Mental Status Exam Narrative: Pt is alert and oriented; behavior is cooperative, pleasant and calm; patient is not in distress; dressed in casual attire with adequate hygiene and adequate hygiene; mood is described as good and affect congruent; eye contact appropriate; Speech is normal rate, volume and prosody and not pressured (can be a little hard to understand which is baseline); still some psychomotor retardation present; thought process is goal directed and linear; Thought content is on treatment; sadness over mothers ; otherwise pertinent to relevant topics; no paranoid ideations expressed; no SI/no HI. Denies AVH. Patients insight and judgment are fair. Diagnostics Vital Signs (24Hr): Vital Signs - 24 hr 08/13/22 12:45 08/13/22 21:20 08/14/22 09:34 Temperature 97.2 F 97 F Pulse Rate 108 H 88 71 Respiratory Rate 18 16 Blood Pressure 111/56 L 107/53 L Pulse Oximetry 93 Oxygen Delivery Method Room Air BMI result Body Mass Index 29.0 Labs 08/07/22 13:57 08/07/22 13:57 Medications Medications Current Medications Acetaminophen (Acetaminophen 325 Mg Tablet) 650 mg PO Q6H PRN PRN Reason: Headache/Pain Mild Scale (1-3) Al Hydroxide/Mg Hydroxide (Magnesium Hydrox/Alum Hydrox 30 Ml Oral.Susp) 30 ml PO Q6H PRN PRN Reason: Heartburn/Nausea Albuterol Sulfate (Albuterol Sulfate 90 Mcg 8 Gm Inhaler) 2 puff INHALE Q4H PRN PRN Reason: wheezing Last Admin: 08/13/22 11:16 Dose: 2 puff Amoxicillin/Clavulanate Potassium (Amoxicillin/Potassium Clav 875 Mg Tablet) 875 mg PO BID [facility] Last Admin: 08/14/22 09:25 Dose: 875 mg Diphenhydramine HCl (Diphenhydramine Hcl 25 Mg Capsule) 50 mg PO Q12H PRN PRN Reason: Agitation Fluoxetine HCl (Fluoxetine Hcl 10 Mg Capsule) 10 mg PO DAILY [facility] Last Admin: 01/27/23 09:25 Dose: 10 mg Fluticasone/Vilanterol (Fluticasone/Vilanterol 200/25 Blst.W.Dev) 1 puff INHALE RDAILY [facility] Last Admin: 08/14/22 09:34 Dose: Not Given Hydroxyzine HCl (Hydroxyzine Hcl 25 Mg Tablet) 25 mg PO Q6H PRN PRN Reason: Anxiety Magnesium Hydroxide (Milk Of Magnesia 30 Ml Oral.Susp) 30 ml PO DAILY PRN PRN Reason: Constipation Multivitamins/Vitamin C (Multivitamin Tablet) 1 tab PO DAILY [facility] Last Admin: 08/14/22 09:25 Dose: 1 tab Oxcarbazepine (Oxcarbazepine 300 Mg Tablet) 300 mg PO BID [facility] Last Admin: 08/14/22 09:25 Dose: 300 mg Prazosin HCl (Prazosin Hcl 1 Mg Capsule) 1 mg PO BEDTIME [facility]; Protocol Last Admin: 08/13/22 21:26 Dose: 1 mg Quetiapine Fumarate (Quetiapine Fumarate 200 Mg Tablet) 200 mg PO DAILY@0900 [facility] Last Admin: 08/14/22 09:25 Dose: 200 mg Quetiapine Fumarate (Quetiapine Fumarate 300 Mg Tablet) 600 mg PO BEDTIME [facility] Last Admin: 08/13/22 21:24 Dose: 600 mg Quetiapine Fumarate (Quetiapine Fumarate 100 Mg Tablet) 100 mg PO DAILY@1400 [facility] Last Admin: 08/13/22 13:57 Dose: Not Given Risperidone (Risperidone 2 Mg Tablet) 2 mg PO BID [facility] Last Admin: 08/14/22 09:25 Dose: 2 mg Trazodone HCl (Trazodone Hcl 50 Mg Tablet) 50 mg PO BEDTIME PRN PRN Reason: Insomnia Vitamin D (Cholecalciferol (Vitamin D3) 25 Mcg Tablet) 50 mcg PO DAILY [facility] Last Admin: 08/14/22 09:25 Dose: 50 mcg Allergies Allergies Allergy/AdvReac Type Severity Reaction Status Date / Time Tetracyclines Allergy Unknown Verified 08/07/22 09:43 Assessment & Plan Assessment & Plan (1) Schizophrenia: Status: Acute Code(s): F20.9 - Schizophrenia, unspecified (2) Polysubstance abuse: Status: Acute Code(s): F19.10 - Other psychoactive substance abuse, uncomplicated Plan 56 yo female with hx of schizophrenia, substance abuse, PTSD presents with SI,HI, AH,VH after attempts to harm her cat. Pt asks for assistance in sx mgt. Patient has become increasingly depressed since her mother about a year and a half ago. Hospital course: 08/09/22 Continue to monitor No changes today 08/10 Boiler Control Room Operator discussed case with Dr. Gay, patient's outpatient psychiatrist. Patient would like to remain on current regimen for now but is open to medication changes to help with depression primarily. Will leave on current regimen for now to better assess. 08/11 remains depressed, in room, irritable; agrees to trying Wellbutrin for depression. Boiler Control Room Operator discussed and patient agrees that patient has been relatively stable on Seroquel and Risperdal and so patient wants to remain on it. Of note, when patient decompensates she can become dangerous and as these medications have helped keep her stable, data analyst report writer would prefers to continue them at this time. 08/12 patient more friendly, engaged; psychotic symptoms seems to have dissipated. Patient agrees to trying SSRI as she did not tolerate Wellbutrin Boiler Control Room Operator researched literature regarding schizophrenia and depression which indicates trials have shown statistically significant results with SSRI/TCA's 08/13 improving; tolerating Prozac; out of room more, more social, less irritable. episode of asthma exacerbation; resolved w/ duonebs 08/14 doing better; no SI/AVH. Continue w/ prozac; likely tired since had not been sleeping much prior to admission Plan: CV q15 min SINGLE ROOM OCCUPANCY Conitnue Prozac 10mg daily for depression: -DC Wellbutrin XL; not tolerated Continue Home med reg: Trileptal 300mg BID Seroquel: 200mg 9am 100mg 2pm 600mg bed Prazosin 1mg bed Risperdal 2mg bid Benadryl 50mg BID prn Patient educated on: diagnosis and medication risk/benefits Informed Consent: understands Reason for contiued inpatient stay Substantial Risk for: stable for discharge Time Spent With Patient Time: Total time managing care of this patient today ____ minutes.
[2022-08-14] MEDS: QUEtiapine Fumarate 100 MG TABLET PO (14:13)
[2022-08-14] MEDS: Prazosin HCL 1 MG CAPSULE PO (20:48)
[2022-08-14] MEDS: QUEtiapine Fumarate 300 MG TABLET 600 MG PO (20:48)
[2022-08-14 21:02] VITALS: BP 130/61; PULSE 82; RESP 16; TEMP 36.2; O2SAT 93
[2022-08-15] MEDS: Amoxicillin/Potassium Clav 875 MG TABLET PO ×2 (08:49→22:19)
[2022-08-15] MEDS: OXcarbazepine 300 MG TABLET PO ×2 (08:49→22:19)
[2022-08-15] MEDS: Cholecalciferol (Vitamin D3) 25 MCG TABLET 50 MCG PO (08:49)
[2022-08-15] MEDS: risperiDONE 2 MG TABLET PO ×2 (08:49→22:17)
[2022-08-15] MEDS: FLUoxetine HCl 10 MG CAPSULE PO (08:50)
[2022-08-15] MEDS: QUEtiapine Fumarate 200 MG TABLET PO (08:50)
[2022-08-15] MEDS: Multivitamin TABLET 1 TAB PO (08:50)
[2022-08-15] MEDS: Albuterol Sulfate 90 MCG 8 GM INHALER 2 PUFF INHALE (08:56)
[2022-08-15] MEDS: Fluticasone/Vilanterol 200/25 BLST.W.DEV 1 PUFF INHALE (08:56)
[2022-08-15 08:57] VITALS: BP 108/51; PULSE 84; RESP 18; TEMP 36.4; O2SAT 92
--- NOTE | 2022-08-15 11:40 | P.PNPSI_ITS ---
Subjective Subjective Date of Service: 08/15/22 Reason For Visit: Schizophrenia Interim History: met w/ patient; discussed with RN. Patient seen and discussed. Patient reports she is doing better than on admission. She is a little OK . She is having some depression. Improved since admission. Reports adequate sleep, denies voices, visions, current fears or sx of concern. Denies mood sx today. She has been out of room more overall Review of Systems Review of Systems Yes all other systems are reviewed and are negative Reports behavioral changes and Reports memory loss Psychiatric: Reports abnormal sleep pattern, Reports behavioral changes, Reports depression, Reports difficulty concentrating, Reports auditory hallucinations, Reports irritability, Reports memory loss, Reports mood swings, Reports paranoia, Reports visual hallucinations, Reports hallucinations, Reports homicidal ideation and Reports suicidal ideation Mental Status Exam Mental Status Exam Narrative: Pt is alert and oriented; behavior is cooperative, pleasant and calm; patient is not in distress; dressed in casual attire with adequate hygiene and adequate hygiene; mood is described as good and affect congruent; eye contact appropriate; Speech is normal rate, volume and prosody and not pressured (can be a little hard to understand which is baseline); still some psychomotor retardation present; thought process is goal directed and linear; Thought content is on treatment; sadness over mothers ; otherwise pertinent to relevant topics; no paranoid ideations expressed; no SI/no HI. Denies AVH. Patients insight and judgment are fair. Patient Appearance: Fatigued and Bizarre (primative) Patient Orientation: Person Level of Consciousness: Alert Patient Behavior: Guarded, Suspicious, Anxious, Fearful, Avoidant, Fatigued, Distractible and Good Eye Contact Mood Description: Hostile and Labile Affect Description: Hostile and Labile Patient Cognition Impaired: No Ability to Follow Directions: Good Speech Pattern: Perseverating, Spontaneous Speech and Soft-Spoken Memory Description: Remote Impaired and Episodic Impaired Diagnostics Vital Signs (24Hr): Vital Signs - 24 hr 08/15/22 08:57 08/15/22 22:05 Temperature 97.5 F 97.4 F Pulse Rate 84 91 Respiratory Rate 18 Blood Pressure 108/51 L 116/54 L Pulse Oximetry 92 94 Oxygen Delivery Method Room Air Room Air BMI result Body Mass Index 29.0 Labs 08/07/22 13:57 08/07/22 13:57 Medications Medications Current Medications Acetaminophen (Acetaminophen 325 Mg Tablet) 650 mg PO Q6H PRN PRN Reason: Headache/Pain Mild Scale (1-3) Al Hydroxide/Mg Hydroxide (Magnesium Hydrox/Alum Hydrox 30 Ml Oral.Susp) 30 ml PO Q6H PRN PRN Reason: Heartburn/Nausea Albuterol Sulfate (Albuterol Sulfate 90 Mcg 8 Gm Inhaler) 2 puff INHALE Q4H PRN PRN Reason: wheezing Last Admin: 08/15/22 08:56 Dose: 2 puff Amoxicillin/Clavulanate Potassium (Amoxicillin/Potassium Clav 875 Mg Tablet) 875 mg PO BID [facility] Last Admin: 08/15/22 22:19 Dose: 875 mg Diphenhydramine HCl (Diphenhydramine Hcl 25 Mg Capsule) 50 mg PO Q12H PRN PRN Reason: Agitation Fluoxetine HCl (Fluoxetine Hcl 10 Mg Capsule) 10 mg PO DAILY [facility] Last Admin: 08/15/22 08:50 Dose: 10 mg Fluticasone/Vilanterol (Fluticasone/Vilanterol 200/25 Blst.W.Dev) 1 puff INHALE RDAILY [facility] Last Admin: 08/15/22 08:56 Dose: 1 puff Hydroxyzine HCl (Hydroxyzine Hcl 25 Mg Tablet) 25 mg PO Q6H PRN PRN Reason: Anxiety Magnesium Hydroxide (Milk Of Magnesia 30 Ml Oral.Susp) 30 ml PO DAILY PRN PRN Reason: Constipation Multivitamins/Vitamin C (Multivitamin Tablet) 1 tab PO DAILY [facility] Last Admin: 08/15/22 08:50 Dose: 1 tab Oxcarbazepine (Oxcarbazepine 300 Mg Tablet) 300 mg PO BID [facility] Last Admin: 08/15/22 22:19 Dose: 300 mg Prazosin HCl (Prazosin Hcl 1 Mg Capsule) 1 mg PO BEDTIME [facility]; Protocol Last Admin: 08/15/22 22:17 Dose: 1 mg Quetiapine Fumarate (Quetiapine Fumarate 200 Mg Tablet) 200 mg PO DAILY@0900 [facility] Last Admin: 08/15/22 08:50 Dose: 200 mg Quetiapine Fumarate (Quetiapine Fumarate 300 Mg Tablet) 600 mg PO BEDTIME [facility] Last Admin: 08/15/22 22:18 Dose: 600 mg Quetiapine Fumarate (Quetiapine Fumarate 100 Mg Tablet) 100 mg PO DAILY@1400 [facility] Last Admin: 08/15/22 13:21 Dose: 100 mg Risperidone (Risperidone 2 Mg Tablet) 2 mg PO BID [facility] Last Admin: 08/15/22 22:17 Dose: 2 mg Trazodone HCl (Trazodone Hcl 50 Mg Tablet) 50 mg PO BEDTIME PRN PRN Reason: Insomnia Vitamin D (Cholecalciferol (Vitamin D3) 25 Mcg Tablet) 50 mcg PO DAILY [facility] Last Admin: 08/15/22 08:49 Dose: 50 mcg Allergies Allergies Allergy/AdvReac Type Severity Reaction Status Date / Time Tetracyclines Allergy Unknown Verified 08/07/22 09:43 Assessment & Plan Assessment & Plan (1) Schizophrenia: Status: Acute Code(s): F20.9 - Schizophrenia, unspecified (2) Polysubstance abuse: Status: Acute Code(s): F19.10 - Other psychoactive substance abuse, uncomplicated Plan 56 yo female with hx of schizophrenia, substance abuse, PTSD presents with SI,HI, AH,VH after attempts to harm her cat. Pt asks for assistance in sx mgt. Patient has become increasingly depressed since her mother about a year and a half ago. Hospital course: 08/09/22 Continue to monitor No changes today 08/10 Electrical Power Engineer discussed case with Dr. Gay, patient's outpatient psychiatrist. Patient would like to remain on current regimen for now but is open to medication changes to help with depression primarily. Will leave on current regimen for now to better assess. 08/11 remains depressed, in room, irritable; agrees to trying Wellbutrin for depression. Electrical Power Engineer discussed and patient agrees that patient has been relatively stable on Seroquel and Risperdal and so patient wants to remain on it. Of note, when patient decompensates she can become dangerous and as these medications have helped keep her stable, principal technical writer would prefers to continue them at this time. 08/12 patient more friendly, engaged; psychotic symptoms seems to have dissipated. Patient agrees to trying SSRI as she did not tolerate Wellbutrin Electrical Power Engineer researched literature regarding schizophrenia and depression which indicates trials have shown statistically significant results with SSRI/TCA's 08/13 improving; tolerating Prozac; out of room more, more social, less irritable. episode of asthma exacerbation; resolved w/ duonebs 08/14 doing better; no SI/AVH. Continue w/ prozac; likely tired since had not been sleeping much prior to admission 08/15: Continue current tx plan. Plan: CV q15 min SINGLE ROOM OCCUPANCY Conitnue Prozac 10mg daily for depression: -DC Wellbutrin XL; not tolerated Continue Home med reg: Trileptal 300mg BID Seroquel: 200mg 9am 100mg 2pm 600mg bed Prazosin 1mg bed Risperdal 2mg bid Benadryl 50mg BID prn Reason for contiued inpatient stay Substantial Risk for: harm to self, inability to function and rapid de compensation Time Spent With Patient Time: Total time managing care of this patient today ____ minutes.
[2022-08-15] MEDS: QUEtiapine Fumarate 100 MG TABLET PO (13:21)
[2022-08-15 22:05] VITALS: BP 116/54; PULSE 91; TEMP 36.3; O2SAT 94
[2022-08-15] MEDS: Prazosin HCL 1 MG CAPSULE PO (22:17)
[2022-08-15] MEDS: QUEtiapine Fumarate 300 MG TABLET 600 MG PO (22:18)
[2022-08-16 09:00] VITALS: BP 128/76; PULSE 90; RESP 18; TEMP 36.8; O2SAT 94
[2022-08-16] MEDS: OXcarbazepine 300 MG TABLET PO ×2 (09:04→22:17)
[2022-08-16] MEDS: Fluticasone/Vilanterol 200/25 BLST.W.DEV 1 PUFF INHALE (09:04)
[2022-08-16] MEDS: QUEtiapine Fumarate 200 MG TABLET PO (09:04)
[2022-08-16] MEDS: Cholecalciferol (Vitamin D3) 25 MCG TABLET 50 MCG PO (09:04)
[2022-08-16] MEDS: risperiDONE 2 MG TABLET PO ×2 (09:04→22:15)
[2022-08-16] MEDS: Amoxicillin/Potassium Clav 875 MG TABLET PO ×2 (09:04→22:18)
[2022-08-16] MEDS: Multivitamin TABLET 1 TAB PO (09:05)
[2022-08-16] MEDS: FLUoxetine HCl 10 MG CAPSULE PO (09:05)
--- NOTE | 2022-08-16 13:45 | HO.PSYCHPN ---
Subjective Subjective Date of Service: 08/16/22 Reason For Visit: Schizophrenia Interim History: met w/ patient; discussed with RN. Patient seen and discussed. Patient reports she is doing well. She is having some depression. Improved since admission. Reports adequate sleep, denies voices, visions, current fears or sx of concern. Denies mood sx today. She has been out of room more overall Review of Systems Review of Systems Yes all other systems are reviewed and are negative Reports behavioral changes and Reports memory loss Psychiatric: Reports abnormal sleep pattern, Reports behavioral changes, Reports depression, Reports difficulty concentrating, Reports auditory hallucinations, Reports irritability, Reports memory loss, Reports mood swings, Reports paranoia, Reports visual hallucinations, Reports hallucinations, Reports homicidal ideation and Reports suicidal ideation Mental Status Exam Mental Status Exam Narrative: Pt is alert and oriented; behavior is cooperative, pleasant and calm; patient is not in distress; dressed in casual attire with adequate hygiene and adequate hygiene; mood is described as good and affect congruent; eye contact appropriate; Speech is normal rate, volume and prosody and not pressured (can be a little hard to understand which is baseline); still some psychomotor retardation present; thought process is goal directed and linear; Thought content is on treatment; sadness over mothers ; otherwise pertinent to relevant topics; no paranoid ideations expressed; no SI/no HI. Denies AVH. Patients insight and judgment are fair. Patient Appearance: Fatigued and Bizarre (primative) Patient Orientation: Person Level of Consciousness: Alert Patient Behavior: Guarded, Suspicious, Anxious, Fearful, Avoidant, Fatigued, Distractible and Good Eye Contact Mood Description: Hostile and Labile Affect Description: Hostile and Labile Patient Cognition Impaired: No Ability to Follow Directions: Good Speech Pattern: Perseverating, Spontaneous Speech and Soft-Spoken Memory Description: Remote Impaired and Episodic Impaired Diagnostics Vital Signs (24Hr): Vital Signs - 24 hr 08/16/22 09:00 08/16/22 16:47 Temperature 98.2 F 97.6 F Pulse Rate 90 68 Respiratory Rate 18 18 Blood Pressure 128/76 118/62 Pulse Oximetry 94 95 Oxygen Delivery Method Room Air Room Air BMI result Body Mass Index 29.0 Labs 08/07/22 13:57 08/07/22 13:57 Medications Medications Current Medications Acetaminophen (Acetaminophen 325 Mg Tablet) 650 mg PO Q6H PRN PRN Reason: Headache/Pain Mild Scale (1-3) Al Hydroxide/Mg Hydroxide (Magnesium Hydrox/Alum Hydrox 30 Ml Oral.Susp) 30 ml PO Q6H PRN PRN Reason: Heartburn/Nausea Albuterol Sulfate (Albuterol Sulfate 90 Mcg 8 Gm Inhaler) 2 puff INHALE Q4H PRN PRN Reason: wheezing Last Admin: 08/15/22 08:56 Dose: 2 puff Amoxicillin/Clavulanate Potassium (Amoxicillin/Potassium Clav 875 Mg Tablet) 875 mg PO BID [facility] Last Admin: 08/16/22 22:18 Dose: 875 mg Diphenhydramine HCl (Diphenhydramine Hcl 25 Mg Capsule) 50 mg PO Q12H PRN PRN Reason: Agitation Fluoxetine HCl (Fluoxetine Hcl 10 Mg Capsule) 10 mg PO DAILY [facility] Last Admin: 08/16/22 09:05 Dose: 10 mg Fluticasone/Vilanterol (Fluticasone/Vilanterol 200/25 Blst.W.Dev) 1 puff INHALE RDAILY [facility] Last Admin: 08/16/22 09:04 Dose: 1 puff Hydroxyzine HCl (Hydroxyzine Hcl 25 Mg Tablet) 25 mg PO Q6H PRN PRN Reason: Anxiety Magnesium Hydroxide (Milk Of Magnesia 30 Ml Oral.Susp) 30 ml PO DAILY PRN PRN Reason: Constipation Multivitamins/Vitamin C (Multivitamin Tablet) 1 tab PO DAILY [facility] Last Admin: 08/16/22 09:05 Dose: 1 tab Oxcarbazepine (Oxcarbazepine 300 Mg Tablet) 300 mg PO BID [facility] Last Admin: 08/16/22 22:17 Dose: 300 mg Prazosin HCl (Prazosin Hcl 1 Mg Capsule) 1 mg PO BEDTIME [facility]; Protocol Last Admin: 08/16/22 22:14 Dose: 1 mg Quetiapine Fumarate (Quetiapine Fumarate 200 Mg Tablet) 200 mg PO DAILY@0900 [facility] Last Admin: 08/16/22 09:04 Dose: 200 mg Quetiapine Fumarate (Quetiapine Fumarate 300 Mg Tablet) 600 mg PO BEDTIME [facility] Last Admin: 08/16/22 22:17 Dose: 600 mg Quetiapine Fumarate (Quetiapine Fumarate 100 Mg Tablet) 100 mg PO DAILY@1400 [facility] Last Admin: 08/16/22 14:04 Dose: 100 mg Risperidone (Risperidone 2 Mg Tablet) 2 mg PO BID [facility] Last Admin: 08/16/22 22:15 Dose: 2 mg Trazodone HCl (Trazodone Hcl 50 Mg Tablet) 50 mg PO BEDTIME PRN PRN Reason: Insomnia Last Admin: 08/16/22 22:16 Dose: 50 mg Vitamin D (Cholecalciferol (Vitamin D3) 25 Mcg Tablet) 50 mcg PO DAILY [facility] Last Admin: 08/16/22 09:04 Dose: 50 mcg Allergies Allergies Allergy/AdvReac Type Severity Reaction Status Date / Time Tetracyclines Allergy Unknown Verified 08/07/22 09:43 Assessment & Plan Assessment & Plan (1) Schizophrenia: Status: Acute Code(s): F20.9 - Schizophrenia, unspecified (2) Polysubstance abuse: Status: Acute Code(s): F19.10 - Other psychoactive substance abuse, uncomplicated Plan 56 yo female with hx of schizophrenia, substance abuse, PTSD presents with SI,HI, AH,VH after attempts to harm her cat. Pt asks for assistance in sx mgt. Patient has become increasingly depressed since her mother about a year and a half ago. Hospital course: 08/09/22 Continue to monitor No changes today 08/10 Road Crew Member discussed case with Dr. Gay, patient's outpatient psychiatrist. Patient would like to remain on current regimen for now but is open to medication changes to help with depression primarily. Will leave on current regimen for now to better assess. 08/11 remains depressed, in room, irritable; agrees to trying Wellbutrin for depression. Road Crew Member discussed and patient agrees that patient has been relatively stable on Seroquel and Risperdal and so patient wants to remain on it. Of note, when patient decompensates she can become dangerous and as these medications have helped keep her stable, board writer would prefers to continue them at this time. 08/12 patient more friendly, engaged; psychotic symptoms seems to have dissipated. Patient agrees to trying SSRI as she did not tolerate Wellbutrin Road Crew Member researched literature regarding schizophrenia and depression which indicates trials have shown statistically significant results with SSRI/TCA's 08/13 improving; tolerating Prozac; out of room more, more social, less irritable. episode of asthma exacerbation; resolved w/ duonebs 08/14 doing better; no SI/AVH. Continue w/ prozac; likely tired since had not been sleeping much prior to admission 08/15: Continue current tx plan. 08/16: Continue tx plan. Plan: CV q15 min SINGLE ROOM OCCUPANCY Conitnue Prozac 10mg daily for depression: -DC Wellbutrin XL; not tolerated Continue Home med reg: Trileptal 300mg BID Seroquel: 200mg 9am 100mg 2pm 600mg bed Prazosin 1mg bed Risperdal 2mg bid Benadryl 50mg BID prn Reason for contiued inpatient stay Substantial Risk for: inability to function and rapid decompensation Time Spent With Patient Time: Total time managing care of this patient today ____ minutes.
[2022-08-16] MEDS: QUEtiapine Fumarate 100 MG TABLET PO (14:04)
[2022-08-16 16:47] VITALS: BP 118/62; PULSE 68; RESP 18; TEMP 36.4; O2SAT 95
[2022-08-16] MEDS: Prazosin HCL 1 MG CAPSULE PO (22:14)
[2022-08-16] MEDS: traZODone HCL 50 MG TABLET PO (22:16)
[2022-08-16] MEDS: QUEtiapine Fumarate 300 MG TABLET 600 MG PO (22:17)
[2022-08-17] MEDS: Amoxicillin/Potassium Clav 875 MG TABLET PO (10:01)
[2022-08-17] MEDS: Multivitamin TABLET 1 TAB PO (10:01)
[2022-08-17] MEDS: FLUoxetine HCl 10 MG CAPSULE PO (10:01)
[2022-08-17] MEDS: OXcarbazepine 300 MG TABLET PO (10:01)
[2022-08-17] MEDS: Cholecalciferol (Vitamin D3) 25 MCG TABLET 50 MCG PO (10:01)
[2022-08-17] MEDS: QUEtiapine Fumarate 200 MG TABLET PO (10:02)
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
[2022-08-17] MEDS: Fluticasone/Vilanterol 200/25 BLST.W.DEV 1 PUFF INHALE (10:04)
[2022-08-17] MEDS: risperiDONE 2 MG TABLET PO (10:04)
[2022-08-17 10:16] VITALS: BP 141/56; PULSE 104; RESP 18; TEMP 36.1; O2SAT 92
[2022-08-17] MEDS: Naloxone HCl Nasal TAKE HOME 4 MG SPRAY NOSTRILALT (10:35)
--- NOTE | 2022-08-17 14:20 | PC.NURSE ---
Patient engages for review of discharge summary. Mood irritable, impatient, focused on personal belongings. Patient denies SI/HI plan or intent at this time. Denies racing thought or confusion, denies mood disturbances. Denies perceptual disturbances, no overt psychosis or expressed delusions. All belongings taken with patient. Discharge appointments reviewed however patient disinterested in review. Crisis numbers provided to patient. Narcan given to patient with instructions for use if needed.
== END 2022-08-17 14:20 | disposition home or self-care (01) | DRG 750 ==
LOC: HO.ED 12:51 → HO.PM5 14:55
PROVIDERS: Physician Assistant; Admitting Provider Psychiatry & Neurology Psychiatry; Emergency Provider Emergency Medicine; PCP Internal Medicine; Visit Provider Psychiatry & Neurology Psychiatry
DX: F25.1 Schizoaffective disorder, depressive type (principal); F17.210 Nicotine dependence, cigarettes, uncomplicated; F19.10 Other psychoactive substance abuse, uncomplicated; Z20.822 Contact with and (suspected) exposure to COVID-19; Z71.6 Tobacco abuse counseling; Z79.899 Other long term (current) drug therapy
CPT/HCPCS: 80307; 81001; 81003; 81025; 82077; 87086; 87635; 93005; 94640; 99285